=== PATIENT | female | born 1980 | race Caucasian/White ===

== ENCOUNTER → 2017-06-03 06:52 | Outpatient (CLI) | payer BC, SELFPAY ==
[2015-11-24 13:38] VITALS: BP 109/73
[2017-04-12 14:51] VITALS: BP 118/80; BMI 30.9
== END ==
PROVIDERS: Visit Provider Obstetrics & Gynecology
DX: Z12.4 Encounter for screening for malignant neoplasm of cervix (principal)

== ENCOUNTER → 2017-09-09 17:05 | Outpatient (CLI) | payer BC, SELFPAY ==
--- NOTE | 2017-09-09 15:22 | FLU_PTH ---
PATIENT: LATHA ANGELA LOC: [facility] U#:[id number] AGE/SX: 44/F ROOM: RE09/09/[address]: Dr. Magalys Nichole MD : 1980 BED: DIS: SPEC #: [id number] RECD: 09/09/17 16:58 STATUS: VINOD RELisa #: [id number] [place]: 09/09/17 15:[address]: Magalys Nichole DEPT: CYTOLOGY RECD BY: Arash Storm ENTERED: 09/10/17 13:19 SP TYPE: Fluid OTHR DR: Dr. Sterling Sandoval MD Tissues: A - Thyroid gland, NOS B - Thyroid gland, NOS Procedures: Pap Stain (control) Special Stain Group II Surgery Specimen Level IV Cell Block Cytospin Fluid Cytology Other HEADER OPERATION: Ultrasound guided fine needle aspiration of left thyroid PRE-OP DIAGNOSIS: Thyroid nodules TISSUE SUBMITTED: A. FNA left thyroid, fluid, B. FNA left thyroid, slides DIAGNOSIS CYTOLOGY A. Left thyroid nodule fluid, ultrasound-guided FNA (cytospin and cell block): Negative for malignant cells. See cytology study and comment. B. 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 See cytology study and comment. SJ:dea 09/11/17 COMMENT Immediate cytologic evaluation to determine adequacy is not applicable. Correlation with clinical, radiologic findings and appropriate follow up are necessary. CYTOLOGY STUDY Slides are reviewed. A. The specimen consists of numerous macrophages, benign follicular cells, H?rthle cells and colloid. B. The specimen is adequate for evaluation. The specimen consists of benign follicular cells, H?rthle cells, macrophages and colloid. CYTOLOGY GROSS A. Received is 35 ml of cloudy gelacio fluid labeled with the patient's name and and designated per the requisition as FNA left thyroid. Submitted for cytology preparation including cell block. B. Received are 6 smears labeled with the patient's name and designated per the requisition as FNA left thyroid. Submitted for staining. / RB:cc 5/15/18 TC:5 CPT: 66001, 30937, 26708
== END ==
PROVIDERS: Family Provider Family Medicine; PCP Family Medicine; Visit Provider Surgery
DX: E04.1 Nontoxic single thyroid nodule (principal)
CPT/HCPCS: 88108; 88161; 88305; 88313

== ENCOUNTER 2017-09-17 03:29 | Emergency (ER) | payer BC, SELFPAY ==
[2017-09-17 03:31] VITALS: BP 121/82; PULSE 96; RESP 18; TEMP 36.9; O2SAT 98; BMI 29.5
--- NOTE | 2017-09-17 03:43 | ED.VISSUMM ---
- ER Visit Summary Date of Service: 09/17/17 Chief Complaint: [] Abdominal pain History of Present Illness: The patient is a 37 F [] woke with abdominal pain 30 minutes ago. From sleep she felt periumbilical dull and sharp pains that alternate and wax and wane. Associated with some mild nausea. She felt fine prior to bed. She took 3 ibuprofen prior to coming in with minimal relief. She has never had this before. No urinary symptoms. Physical Examination: Vital signs reviewed General: Well-nourished well-developed Head: Normocephalic atraumatic Eyes: Pupils equal round and reactive to light extraocular movements intact ENT: TMs clear no hemotympanum no trauma Neck: Nontender full range of motion Cardiovascular: Regular rate rhythm no murmurs normal S1-S2 Respiratory: No distress clear to auscultation bilaterally chest nontender Abdomen: Soft and periumbilical tenderness. No tenderness over the appendix or gallbladder nondistended normal bowel sounds no masses Back: Nontender no CVA tenderness Extremities: Nontender active range of motion ?4 extremities no trauma Skin: Normal color no trauma Neuro alert oriented cranial nerves II through XII intact normal strength sensation reflexes Test Results: [] Emergency Department Course and Treatment: [] Patient did waiting for pain or nausea. Lab work obtained. white count of 11.5. This is up from 10.2. He chronically runs high and her white blood cell count. Chemistries normal. Liver function tests is normal except AST of 11. Lipase normal. Urinalysis shows nothing acute. negative. Patient did waiting for pain or nausea. Her pain has gone down. I have a low suspicion for appendicitis and reevaluation. She has some very mild tenderness periumbilical and right lower. I offered her CT abdomen pelvis to make sure she does have appendicitis which she refused. She would like to go home take pain medicine ibuprofen and see if this gets worse or goes away. This could be intestinal spasm. Could be gas pains. She will return if she worsens. Treatment Plan: [] Disposition: [] Impression: [] Abdominal pain This note was generated with [employer] dictation software. It may contain incorrect words, spelling, and punctuation that were not noted in review of the chart prior to signing ED Disposition - Plan for ED Patient: Chief Complaint: Abd Pain Referrals: Sterling Sandoval MD [Primary Care Provider] -
[2017-09-17 03:50] LABS: Absolute Lymphocyte Count 2.68 X10^3/ul (0.83-4.51); Absolute Neutrophil Count 7.6 X10^3/uL (2.0-7.7); Basophil# 0.03 X10^3/uL; Basophil% 0.3 % (0-1); Eosinophil# 0.38 X10^3/uL; Eosinophils% 3.3 % (0-5); Hematocrit 38.3 % (37-47); Hemoglobin 12.5 g/dl (12.0-15.0); Lymphocyte # 2.68 X10^3/ul (4.0); Lymphocyte % 23.3 % (19-41); Mean Corp Hgb Conc 32.6 g/gl (32-36); Mean Corpuscular Hgb 29.2 pg (27.0-32.0); Mean Corpuscular Volume 89.5 fL (81-99); Mean Platelet Vol. 9.8 fl (6.2-12.0); Monocyte# 0.78 X10^3/uL; Monocyte% 6.8 % (0-10); Neutrophil # 7.59 X10^3/uL (2.7-7.7); Neutrophil % 66.1 % (47-70); POSITIVE COUNT NO; POSITIVE DIFFERENTIAL NO; POSITIVE MORPHOLOGY NO; Platelet Count 355 K/mm3 (150-450); RBC Distribution Width CV 13.2 % (11.6-14.6); RBC Distribution Width SD 42.7 fl (35.1-43.9); Red Blood Count 4.28 M/mm3 (4.2-5.4); White Blood Count 11.5 K/mm3 (4.4-11.0)
[2017-09-17 04:20] LABS: Bacteria 0 SEEN /hpf (None Seen); Mucous, Urine 0 SEEN /hpf (<or=2+); Red Blood Cells-Urine 0 SEEN /hpf (0-5)
[2017-09-17 04:25] LABS: Color, Urine Yellow (Yellow); Glucose, Dipstick Normal (Normal); Ketone-Dipstick Negative (Negative); Leukocyte Esterase-Dipstick 100 /ul (Negative); Nitrite-Dipstick Negative (Negative); Occult Blood-Urine Negative /ul (Negative); Protein-Dipstick Negative (Negative); Specific Gravity, Urine 1.015 (1.002-1.030); Urine Bilirubin Dipstick Negative (Negative); Urine Clarity Sl. Cloudy (Clear); Urine Urobilinogen Normal (Normal)
[2017-09-17 04:33] LABS: Squamous Epithelial Cells - UA 0-5 SEEN /hpf (5-10); White Blood Cells 5-10 SEEN /hpf (0-5)
[2017-09-17 05:15] LABS: AST(SGOT) 11 U/L (15-37); Alanine Aminotransfer ALT/SGPT 15 U/L (13-56); Albumin, Serum 3.3 g/dL (3.2-5.0); Alkaline Phosphatase 65 U/L (45-117); Anion Gap 6 (5-15); BUN 7 mg/dL (7-18); Calcium,Total 8.5 mg/dL (8.5-10.1); Chloride 106 mmol/L (98-107); Creatinine, Serum 0.64 mg/dL (0.55-1.02); EST Glomerular Filtration Rate 113 mL/min (>60); Est Glom Filt Rate - Afr Amer 136 mL/min (>60); Estimated Creatinine Clearance 97.04 ml/min; Globulin 3.3 g/dL (2.2-4.2); Glucose 96 mg/dL (74-106); Lipase 155 U/L (73-393); Potassium 3.7 mmol/L (3.5-5.1); Pregnancy, Serum, hCG Quali. NEGATIVE Negative (0-9 Nonpreg); Protein, Total 6.6 g/dL (6.4-8.2); Sodium Level 142 mmol/L (136-145)
--- NOTE | 2017-09-17 05:15 | ED.RN ---
CALLED LAB TO SEE IF LABS WERE ABOUT TO RESULT. LAB STATED THEIR MACHINE BROKE AND HAS BEEN ON THE PHONE THE PAST 30MINS. THEY STATE MACHINE IS WORKING NOW. THEY WILL RESULT SOON.
--- NOTE | 2017-09-17 05:34 | ED.DEP ---
ED Disposition - Plan for ED Patient: Disposition: Home or Assisted Living Chief Complaint: Abd Pain Instructions: ED Abdominal Pain Unkn Cause Referrals: Sterling Sandoval MD [Primary Care Provider] -
[2017-09-17 05:39] VITALS: PULSE 72; RESP 16; O2SAT 97
--- NOTE | 2017-09-17 05:40 | ED.RN ---
DISCHARGED INSTRUCTS DISCUSSED WITH PT. PT STATED I COULD THROW THEM IN THE TRASH.
== END 2017-09-17 05:42 | disposition home or self-care (01) ==
PROVIDERS: Emergency Provider Emergency Medicine; Family Provider Family Medicine; PCP Family Medicine
DX: R10.9 Unspecified abdominal pain (principal); R11.0 Nausea
CPT/HCPCS: 80048; 80076; 81001; 83690; 84703; 85025; 99283; A4216

== ENCOUNTER 2017-09-17 11:36 | Emergency (ER) | payer BC, SELFPAY ==
[2017-09-17 11:38] VITALS: BP 119/83; PULSE 98; RESP 18; TEMP 36.7; O2SAT 100; BMI 30.1
--- NOTE | 2017-09-17 12:42 | CT_ITS ---
STUDY: CT ABDOMEN AND PELVIS WITH CONTRAST REASON FOR EXAM: Female, 37 years old. Right lower quadrant abdominal pain. RADIATION DOSAGE (If Supplied By Facility): CTDIvol = ( 8.72 ) mGy, DLP = ( 940.40 ) mGycm TECHNIQUE: Transaxial images were obtained from the dome of the diaphragm to the symphysis pubis without oral contrast. 100 ml of Isovue 300 contrast was administered. Sagittal and coronal images were reconstructed. Individualized dose optimization techniques were used for this CT. COMPARISON: None. FINDINGS: Bilateral breast implants. The visualized lung bases are unremarkable. The visualized portions of the heart are within normal limits. Mild hepatomegaly. Normal gallbladder and extrahepatic biliary system. Normal spleen. Normal pancreas. There is a small, circumscribed, smooth, low attenuation left adrenal mass, consistent with an adrenal adenoma. This measures 2.5 cm x 2.1 cm. Normal right adrenal gland. Normal right kidney. Normal left kidney. Normal visualized stomach. Normal small intestine. Normal colon. There is non-visualization of the appendix. Normal abdominal aorta. Normal inferior vena cava. Normal retroperitoneum. Normal urinary bladder. There is a small umbilical hernia containing fat. Normal osseous structures. CT/Abdomen/Pelvis W IV Cont ONLY IMPRESSION: Hepatomegaly. 2.5 cm x 2.1 cm low density nodule in the left adrenal gland suggestive of a adrenal adenoma. Electronically Signed: Bruce Hudson MD at 14:38 EDT Tel [phone], Service support ,
[2017-09-17] MEDS: 0.9% Normal Saline 1,000 ML 1000 ML IV (13:00)
[2017-09-17 13:09] LABS: Absolute Lymphocyte Count 1.77 X10^3/ul (0.83-4.51); Absolute Neutrophil Count 9.6 X10^3/uL (2.0-7.7); Basophil# 0.02 X10^3/uL; Basophil% 0.2 % (0-1); Eosinophils% 0.8 % (0-5); Hematocrit 36.4 % (37-47); Hemoglobin 11.7 g/dl (12.0-15.0); Lymphocyte # 1.77 X10^3/ul (4.0); Lymphocyte % 14.3 % (19-41); Mean Corp Hgb Conc 32.1 g/gl (32-36); Mean Corpuscular Hgb 28.6 pg (27.0-32.0); Mean Platelet Vol. 9.9 fl (6.2-12.0); Monocyte# 0.84 X10^3/uL; Monocyte% 6.8 % (0-10); Neutrophil # 9.61 X10^3/uL (2.7-7.7); Neutrophil % 77.7 % (47-70); Platelet Count 325 K/mm3 (150-450); RBC Distribution Width CV 13.2 % (11.6-14.6); RBC Distribution Width SD 42.3 fl (35.1-43.9); Red Blood Count 4.09 M/mm3 (4.2-5.4); White Blood Count 12.4 K/mm3 (4.4-11.0)
[2017-09-17 13:13] LABS: POSITIVE COUNT NO; POSITIVE DIFFERENTIAL NO; POSITIVE MORPHOLOGY NO
--- NOTE | 2017-09-17 14:51 | ED.DCSUM_ITS ---
- ER Visit Summary Date of Service: 09/17/17 Chief Complaint: Abdominal pain History of Present Illness: The patient is a 37 F who presents with abdominal pain since 3:30 in the morning. Patient was seen shortly after the pain woke her up had a white count just above 11. She was discharged home and returns today with continued pain. Patient states the pain is constant and aching. She notes nausea but no vomiting. She had a negative urinalysis this morning. No fevers. Physical Examination: Afebrile vital signs are stable Gen: Well-nourished well-developed Head: Normocephalic atraumatic Eyes: Perrl EOMI ENT: TMs clear no rhinorrhea moist mucous membranes Neck: Supple no lymphadenopathy no JVD nontender CVS: Regular rate rhythm no murmurs normal S1-S2 Respiratory: No distress clear to auscultation bilaterally chest nontender Abdomen: Soft nondistended normal bowel sounds no masses there is tenderness to palpation in the right lower quadrant without guarding or rebound Back: Nontender Extremity: Nontender no edema Skin: Normal color no rash Neuro: alert orientated ?3 CN II-XII intact normal strength sensation reflexes gait cerebellar Psych: Normal affect normal mood Test Results: White count was repeated and is 12.4. CT the abdomen pelvis was obtained which does not demonstrate any acute process. There is nonvisualization of the appendix but there is no inflammatory changes in the right lower quadrant to suggest acute appendicitis. Emergency Department Course and Treatment: Patient is tender but has no guarding or rebound. I think a prudent course given her white count lack of fever and her CT findings is continued observation. I have asked that she have a repeat examination within 24 hours if she continues to have symptoms. Impression: 1. Acute abdominal pain This note was generated with [employer] dictation software. It may contain incorrect words, spelling, and punctuation that were not noted in review of the chart prior to signing ED Disposition - Plan for ED Patient: Disposition: Home or Assisted Living Chief Complaint: Abd Pain Instructions: ED Abdominal Pain Unkn Cause Additional Instructions: If you are continuing to have symptoms in 24 hours you need a repeat examination by either your family physician or the emergency department.
[2017-09-17 15:13] VITALS: BP 104/64; PULSE 78; RESP 16; O2SAT 98
== END 2017-09-17 15:15 | disposition home or self-care (01) ==
PROVIDERS: Emergency Provider Emergency Medicine; Family Provider Family Medicine; PCP Family Medicine
DX: R10.9 Unspecified abdominal pain (principal); R11.0 Nausea
CPT/HCPCS: 74177; 85025; 96361; 96374; 96375; 99284; Q9967; A4216; J2405

== ENCOUNTER → 2017-10-25 15:07 | Outpatient (CLI) | payer BC, SELFPAY ==
[2017-10-25 16:43] LABS: Absolute Neutrophil Count 5.1 X10^3/uL (2.0-7.7); Basophil# 0.04 X10^3/uL; Basophil% 0.5 % (0-1); Eosinophils% 4.5 % (0-5); Hematocrit 39.5 % (37-47); Hemoglobin 12.3 g/dl (12.0-15.0); Lymphocyte % 28.3 % (19-41); Mean Corp Hgb Conc 31.1 g/gl (32-36); Mean Platelet Vol. 9.9 fl (6.2-12.0); Monocyte# 0.79 X10^3/uL; Monocyte% 8.9 % (0-10); Neutrophil # 5.09 X10^3/uL (2.7-7.7); Neutrophil % 57.7 % (47-70); Platelet Count 399 K/mm3 (150-450); RBC Distribution Width CV 12.9 % (11.6-14.6); Red Blood Count 4.39 M/mm3 (4.2-5.4); White Blood Count 8.8 K/mm3 (4.4-11.0)
[2017-10-25 16:59] LABS: Thyroid Stim Hormone (TSH) 0.56 uIU/mL (0.358-3.74)
[2017-10-25 17:04] LABS: POSITIVE COUNT NO; POSITIVE DIFFERENTIAL NO; POSITIVE MORPHOLOGY NO
== END ==
PROVIDERS: Family Provider Family Medicine; PCP Family Medicine; Visit Provider Nurse Practitioner Women's Health
DX: N92.1 Excessive and frequent menstruation with irregular cycle (principal)
CPT/HCPCS: 36415; 84443; 85025

== ENCOUNTER → 2017-10-29 12:35 | Outpatient (CLI) | payer BC, SELFPAY ==
--- NOTE | 2017-10-29 12:36 | US_ITS ---
STUDY: ULTRASOUND OF THE FEMALE PELVIS - COMPLETE REASON FOR EXAM: Female, 37 years old. DUB MENORRHAGIA PELVIC PAIN C SECTION 16,13 TUBAL LIGATION AND REVERSAL TECHNIQUE: Transvaginal COMPARISON: None. FINDINGS: The uterus is anteverted and is in a midline position. The uterus measures 10 x 6.2 x 4.1 cm. There is a Nabothian cyst of the cervix. The endometrium measures 9 mm in thickness, and is hyperechoic. There is no demonstrated endometrial mass. There is no demonstrated myometrial mass. I.U.D. - The patient does not have an I.U.D. The right ovary is visualized. The right ovary measures 2.4 x 2.9 x 2.9 cm. There is no right ovarian cyst or ovarian mass. There is no visualized right adnexal mass or complex lesion. There is normal arterial and normal venous vascularity. The left ovary is visualized. The left ovary measures 4.2 x 3.1 x 2.6 cm. There is no left ovarian cyst or ovarian mass. There is no visualized left adnexal mass or complex lesion. There is normal arterial and normal venous vascularity. There is no fluid in the cul-de-sac. The pre void volume of the bladder was 482 ml. US/Transvaginal Non- IMPRESSION: There are Nabothian cysts of the cervix. Electronically Signed: Ajith Thornton MD at 19:40 EDT , Service support ,
--- NOTE | 2017-10-29 12:36 | US_ITS ---
STUDY: ULTRASOUND OF THE FEMALE PELVIS - COMPLETE REASON FOR EXAM: Female, 37 years old. DUB MENORRHAGIA PELVIC PAIN C SECTION 16,13 TUBAL LIGATION AND REVERSAL TECHNIQUE: Transvaginal COMPARISON: None. FINDINGS: The uterus is anteverted and is in a midline position. The uterus measures 10 x 6.2 x 4.1 cm. There is a Nabothian cyst of the cervix. The endometrium measures 9 mm in thickness, and is hyperechoic. There is no demonstrated endometrial mass. There is no demonstrated myometrial mass. I.U.D. - The patient does not have an I.U.D. The right ovary is visualized. The right ovary measures 2.4 x 2.9 x 2.9 cm. There is no right ovarian cyst or ovarian mass. There is no visualized right adnexal mass or complex lesion. There is normal arterial and normal venous vascularity. The left ovary is visualized. The left ovary measures 4.2 x 3.1 x 2.6 cm. There is no left ovarian cyst or ovarian mass. There is no visualized left adnexal mass or complex lesion. There is normal arterial and normal venous vascularity. There is no fluid in the cul-de-sac. The pre void volume of the bladder was 482 ml. US/Pelvic (Non ) IMPRESSION: There are Nabothian cysts of the cervix. Electronically Signed: Ajith Thornton MD at 19:40 EDT , Service support ,
== END ==
PROVIDERS: Family Provider Family Medicine; PCP Family Medicine; Visit Provider Obstetrics & Gynecology
DX: N92.1 Excessive and frequent menstruation with irregular cycle (principal); R10.2 Pelvic and perineal pain
CPT/HCPCS: 76830; 76856; 93976

== ENCOUNTER 2018-02-21 06:35 | Day surgery (SDC) | payer BC, SELFPAY ==
--- NOTE | 2018-02-21 | EMB_PTH ---
PATIENT: LATHA ANGELA LOC: [facility] [place] U#:[id number] AGE/SX: 37/F ROOM: RE02/21/[address]: Dr. Ada Murphy MD : 1980 BED: DIS: 02/21/2018 SPEC #: [id number] RECD: 02/21/18 12:10 STATUS: VINOD RELisa #: [id number] [place]: 02/21/18 00:[address]: Ada Murphy DEPT: SURGICAL PATHOLOGY RECD BY: Cornelio Noe ENTERED: 02/21/18 12:10 SP TYPE: ENDOM BX/C ELFEGO DR: Dr. Roberto Pérez MD Tissues: Endometrium, NOS Procedures: Surgery Specimen Level IV HEADER OPERATION: Hysteroscopy, dilation and curettage, Marley PRE-OP DIAGNOSIS: Abnormal uterine bleeding TISSUE SUBMITTED: Endometrial curettings MICROSCOPIC DIAGNOSIS Endometrial curettings: Weakly proliferative to inactive endometrium. SJ:dae 02/24/18 MICROSCOPIC DESCRIPTION Slides are reviewed. GROSS DESCRIPTION Received in fixative is one container labeled with the patient's name and designated endometrial curettings. The specimen consists of multiple fragments of hemorrhagic soft tissue that in aggregate measure 3 x 2.5 x 0.3 cm. The entire specimen is submitted in one cassette. / MAN:dae 02/21/18 TC:5 CPT: 46669
[2018-02-21 07:10] VITALS: BP 108/75; PULSE 86; RESP 14; TEMP 37.3; O2SAT 75; BMI 30.2
[2018-02-21 07:14] LABS: Hematocrit 37.9 % (37-47); Hemoglobin 12.1 g/dl (12.0-15.0); Mean Corp Hgb Conc 31.9 g/gl (32-36); Mean Corpuscular Hgb 28.1 pg (27.0-32.0); Mean Corpuscular Volume 88.1 fL (81-99); Mean Platelet Vol. 10.3 fl (6.2-12.0); Platelet Count 328 K/mm3 (150-450); RBC Distribution Width CV 13.4 % (11.6-14.6); RBC Distribution Width SD 41.9 fl (35.1-43.9); White Blood Count 5.7 K/mm3 (4.4-11.0)
[2018-02-21 07:17] LABS: Scan Indicated on CBC? Y/N NO
--- NOTE | 2018-02-21 09:06 | PCM.OPRPT ---
Problem List (1) Abnormal uterine bleeding Status: Acute Report of Operation Date of Procedure: 02/21/18 Pre-Operative Diagnosis: abNormal uterine bleeding Post-Operative Diagnosis: Same Surgery/Procedure Performed:: D&C hysteroscopy Marley endometrial ablation Description of Surgical Findings:: Normal uterine lining Type of Anesthesia:: Local MAC Specimen's removed: EM Drains: None Estimated Blood Loss (mL): Minimal Fluids Replaced: cryStyloid Description of Procedure: Patient was prepped and draped in a normal sterile fashion under MAC anesthesia. A weighted speculum was placed in the vagina and the anterior lip of the cervix was grasped with a single-tooth tenaculum. A paracervical block was placed with 1% lidocaine. Cervix was progressively dilated to allow passage of a 5 mm hysteroscope. The lining was fully visualized and noted to have no gross abnormalities. Uterine sounded to 9.5 cm. Curettage was performed and a moderate amount of tissue was obtained, sent to pathology. The Marley device was opened and the cavity length was found to be 6.5 cm. Device was inserted into the uterus and balloon inflated and device deployed. Integrity of the cavity was confirmed and a 2 minute treatment cycle was completed without complication. All instruments were removed from the vagina and excellent hemostasis was noted. Patient was awoken and taken to recovery in stable condition.
--- NOTE | 2018-02-21 09:07 | DCINST_ITS ---
Discharge Diet: No Restrictions Discharge Activity: Return to Normal Activity, May Shower, May Take a Tub Bath Allergies/Adverse Reactions: Allergies sucralfate [From Carafate] Allergy (Verified 02/21/18 07:10) Hives acetaminophen [From Tylenol] Adverse Reaction (Verified 02/21/18 07:10) Nausea egg Adverse Reaction (Verified 02/21/18 07:10) Abd cramps/diarrhea Medications to take at Discharge alprazolam 0.25 mg tablet 0.25 mg PO BID PRN PRN 06/03/17 ranitidine 150 mg tablet 150 mg PO QDAY 10/25/17 Norethindrone Acetate [Norethindrone AC (Lupaneta)] 5 mg PO BID 02/14/18 Naproxen [Naprosyn] 250 - 500 mg PO Q8H PRN PRN #30 tablet 02/21/18 The following prescriptions were given: Naproxen [Naprosyn] 250 - 500 mg PO Q8H PRN PRN #30 tablet PRN Reason: MILD PAIN Primary Care Physician: Roberto Pérez MD [Primary Care Provider] - Test Results: Test results from this visit will be discussed in further detail at your follow- up appointment, if applicable. Please Follow Up With: Ada Murphy MD - [phone]
[2018-02-21 09:19] VITALS: BP 108/75; BP 145/101; PULSE 96; RESP 16; TEMP 36.2; O2SAT 98
[2018-02-21 09:24] VITALS: BP 108/75; BP 124/92; PULSE 91; RESP 16; O2SAT 99
[2018-02-21 09:31] VITALS: BP 108/75; BP 127/92; PULSE 78; RESP 16; O2SAT 99
[2018-02-21 09:36] VITALS: BP 108/75; BP 127/91; PULSE 77; RESP 16; TEMP 36.4; O2SAT 99
[2018-02-21] MEDS: oxyCODONE 5 MG Tablet PO (10:10)
[2018-02-21 11:49] VITALS: BP 108/75; BP 135/98; PULSE 77; RESP 18; TEMP 36.7; O2SAT 96
== END 2018-02-21 11:57 | disposition home or self-care (01) ==
LOC: SDC 06:36 → AC 06:38
PROVIDERS: Family Provider Family Medicine; PCP Family Medicine; Referring Provider Obstetrics & Gynecology; Visit Provider Obstetrics & Gynecology
PROC: 0U5B8ZZ Destruction of Endometrium, Via Natural or Artificial Opening Endoscopic (ICD-10-PCS; CPT 58558; principal; 2018-02-21 08:00)
DX: N93.9 Abnormal uterine and vaginal bleeding, unspecified (principal)
CPT/HCPCS: 00952; 58563; 36415; 85027; 86850; 86900; 88305; J7120; J2405

== ENCOUNTER 2018-06-22 10:29 | Emergency (ER) | payer BC, SELFPAY ==
[2018-06-22 10:30] VITALS: BP 147/90; PULSE 110; RESP 16; TEMP 36.7; O2SAT 100; BMI 31.4
--- NOTE | 2018-06-22 10:41 | CT_ITS ---
STUDY: CT ABDOMEN AND PELVIS WITH CONTRAST REASON FOR EXAM: Female, 38 years old. Right flank pain and abdominal pain with dark urine. Cholecystectomy 6 weeks ago RADIATION DOSAGE (If Supplied By Facility): CTDIvol = ( 13.71 ) mGy, DLP = ( 899.45 ) mGycm TECHNIQUE: Transaxial images were obtained from the dome of the diaphragm to the symphysis pubis without oral contrast. 100mL ml of Isovue 300 contrast was administered. Sagittal and coronal images were reconstructed. Individualized dose optimization techniques were used for this CT. COMPARISON: None. FINDINGS: The visualized lung bases are unremarkable. The visualized portions of the heart are within normal limits. Normal liver. There are surgical clips in the gallbladder fossa consistent with a prior cholecystectomy. No focal fluid collection. Normal spleen. Normal pancreas. Normal bilateral adrenal glands. Normal right kidney. Normal left kidney. Normal visualized stomach. Normal small intestine. Normal colon. There is non-visualization of the appendix. Normal abdominal aorta. Normal inferior vena cava. Normal retroperitoneum. Normal urinary bladder. There is increased lobulated endometrial fluid with endometrial enhancement, as compared to the prior study (axial image 99). Bilateral breast implants redemonstrated. Operative changes of the anterior abdominal wall without [place] abdominal wall hernia. Normal osseous structures. CT/Abdomen/Pelvis W IV Cont ONLY IMPRESSION: 1. Lobular fluid within the endometrial canal with endometrial mucosal enhancement. Infection such as endometritis or adenomyosis should be considered. Correlation with any intervening pathological procedure recommended. 2. Cholecystectomy. No focal fluid collection or pneumoperitoneum. Electronically Signed: Ganga Gutierrez MD at 12:07 EST , Service support ,
--- NOTE | 2018-06-22 10:44 | ED.VISSUMM ---
- ER Visit Summary Date of Service: 06/22/18 Chief Complaint: Right lower quadrant abdominal pain History of Present Illness: The patient is a 38 F status post cholecystectomy. States that last evening and this morning she had right lower quadrant abdominal pain. It waxes and wanes. Been going on today now for 1-2 hours. Associated nausea but no vomiting. No diet chorea or constipation. No dysuria. No vaginal bleeding or discharge. She had a uterine ablation done last January and no longer has menstrual periods. She denies any fever or chills. She denies any trauma. Physical Examination: Well-appearing young female. Vital signs are stable. Afebrile. No distress. HEENT exam unremarkable. Lungs clear to auscultation bilaterally. Heart regular rhythm no murmur. Abdomen soft. Nondistended. Normal bowel sounds. The right upper, left upper and left lower quadrants are all nontender. She does have tenderness to deep palpation in the right lower quadrant. There are no peritoneal signs. No guarding or rigidity. Nondistended. She does have a surgical incisional scar on the right mid to lower abdomen from her prior cholecystectomy. That area is not tender. There are no signs of trauma. She has normal bowel sounds. Patient is moving all 4 extremities. Neurovascular intact. No edema. Back is completely nontender no CVA tenderness. Neurologically she is awake and alert. Test Results: 11. Electrolytes normal normal gap and creatinine. UA normal no signs of infection or blood. Serum test negative. CT flank study with IV contrast showed fluid in the endometrial canal but no other acute abnormality. The appendix was not visualized. There is no signs of right lower quadrant inflammation. Emergency Department Course and Treatment: Patient treated with IV Toradol for pain and Zofran for nausea. Repeat exam at 12:12 PM patient is doing well. Abdomen is benign. Right lower quadrant unremarkable. She and I and her significant other went over all test results. They are comfortable being discharged home. Treatment Plan: Motrin for pain. Zofran as needed for nausea. Follow-up if not improving or return if worse. Disposition: Discharge Impression: Acute right lower quadrant abdominal pain of uncertain etiology This note was generated with [employer] software. It may contain incorrect words, spelling, and punctuation that were not noted in review of the chart prior to signing ED Disposition - Plan for ED Patient: Referrals: Roberto Pérez MD [Primary Care Provider] -
[2018-06-22] MEDS: Ondansetron 4 MG/2 ML Vial IV (10:56)
[2018-06-22] MEDS: Ketorolac 30 MG/ML Syringe IV (10:56)
[2018-06-22 11:03] LABS: Bacteria 0 SEEN /hpf (None Seen); Mucous, Urine 0 SEEN /hpf (<or=2+); Red Blood Cells-Urine 0 SEEN /hpf (0-5); White Blood Cells 0 SEEN /hpf (0-5)
[2018-06-22 11:10] LABS: Absolute Lymphocyte Count 1.64 X10^3/ul (0.83-4.51); Absolute Neutrophil Count 7.1 X10^3/uL (2.0-7.7); Basophil# 0.05 X10^3/uL; Basophil% 0.5 % (0-1); Color, Urine Yellow (Yellow); Eosinophil# 0.22 X10^3/uL; Eosinophils% 2.2 % (0-5); Glucose, Dipstick Normal (Normal); Hematocrit 40.6 % (37-47); Hemoglobin 12.9 g/dl (12.0-15.0); Ketone-Dipstick Negative (Negative); Leukocyte Esterase-Dipstick 25 /ul (Negative); Lymphocyte # 1.64 X10^3/ul (4.0); Lymphocyte % 16.5 % (19-41); Mean Corp Hgb Conc 31.8 g/gl (32-36); Mean Corpuscular Hgb 28.1 pg (27.0-32.0); Mean Corpuscular Volume 88.5 fL (81-99); Mean Platelet Vol. 10.2 fl (6.2-12.0); Monocyte# 0.94 X10^3/uL; Monocyte% 9.4 % (0-10); Neutrophil # 7.09 X10^3/uL (2.7-7.7); Neutrophil % 71.2 % (47-70); Nitrite-Dipstick Negative (Negative); Occult Blood-Urine Negative /ul (Negative); Platelet Count 355 K/mm3 (150-450); Protein-Dipstick Negative (Negative); RBC Distribution Width SD 44.1 fl (35.1-43.9); Red Blood Count 4.59 M/mm3 (4.2-5.4); Urine Bilirubin Dipstick Negative (Negative); Urine Clarity Clear (Clear); Urine Urobilinogen Normal (Normal)
[2018-06-22 11:11] LABS: POSITIVE COUNT NO; POSITIVE DIFFERENTIAL NO; POSITIVE MORPHOLOGY NO
[2018-06-22 11:15] LABS: Squamous Epithelial Cells - UA 0-5 SEEN /hpf (5-10)
[2018-06-22 11:32] LABS: Anion Gap 5 (5-15); BUN 12 mg/dL (7-18); BUN/Creat Ratio 19.6 RATIO (10-20); Calcium,Total 8.4 mg/dL (8.5-10.1); Chloride 109 mmol/L (98-107); Creatinine, Serum 0.61 mg/dL (0.55-1.02); EST Glomerular Filtration Rate 118 mL/min (>60); Est Glom Filt Rate - Afr Amer 142 mL/min (>60); Estimated Creatinine Clearance 100.84 ml/min; Glucose 94 mg/dL (74-106); Potassium 4.1 mmol/L (3.5-5.1); Pregnancy, Serum, hCG Quali. NEGATIVE Negative (0-9 Nonpreg); Sodium Level 140 mmol/L (136-145)
--- NOTE | 2018-06-22 12:24 | ED.DEP ---
ED Disposition - Plan for ED Patient: Disposition: Home or Assisted Living Instructions: ED Flank Pain Uncertain Cause Referrals: Roberto Pérez MD [Primary Care Provider] - 3-5 Days if not improving Additional Instructions: Motrin for pain. All your tests were unremarkable today. Follow-up your primary care physician if not improving.
[2018-06-22 12:33] VITALS: BP 121/76; PULSE 888; RESP 16; O2SAT 100
== END 2018-06-22 12:34 | disposition home or self-care (01) ==
PROVIDERS: Emergency Provider Emergency Medicine; Family Provider Family Medicine; PCP Family Medicine
DX: R10.31 Right lower quadrant pain (principal); R11.0 Nausea; K21.9 Gastro-esophageal reflux disease without esophagitis; Z90.49 Acquired absence of other specified parts of digestive tract
CPT/HCPCS: 74177; 80048; 81001; 84703; 85025; 96374; 96375; 99283; Q9967; A4216; J2405

== ENCOUNTER → 2018-07-07 13:23 | Outpatient (CLI) | payer BC, SELFPAY ==
[2018-07-07 11:34] VITALS: BMI 31.4
[2018-07-11 09:12] LABS: HPV APTIMA, High Risk Negative (Negative)
== END ==
PROVIDERS: Family Provider Family Medicine; PCP Family Medicine; Referring Provider Obstetrics & Gynecology; Visit Provider Obstetrics & Gynecology
DX: Z12.4 Encounter for screening for malignant neoplasm of cervix (principal)
CPT/HCPCS: 87624; 88175; G0145

== ENCOUNTER 2018-08-25 08:56 | Emergency (ER) | payer BC, SELFPAY ==
[2018-07-07 11:34] VITALS: BMI 31.4
[2018-08-25 08:56] VITALS: BP 105/83; PULSE 118; RESP 18; TEMP 36.6; O2SAT 100; BMI 31.4
--- NOTE | 2018-08-25 09:14 | CT_ITS ---
STUDY: CT ABDOMEN AND PELVIS WITH CONTRAST REASON FOR EXAM: Female, 38 years old. Left-sided abdominal pain, prior cholecystectomy and tubal ligation. RADIATION DOSAGE (If Supplied By Facility): CTDIvol = ( 11.78 ) mGy, DLP = ( 851.09 ) mGycm TECHNIQUE: Transaxial images were obtained from the dome of the diaphragm to the symphysis pubis with oral contrast. 100mL ml of Isovue 300 contrast was administered. Sagittal and coronal images were reconstructed. Individualized dose optimization techniques were used for this CT. COMPARISON: PELVIC AND TRANSVAGINAL 08/25/2017, CT ABDOMEN AND PELVIS 06/22/2018, 09/17/2017, ULTRASOUND TRANSVAGINAL 10/29/2017. FINDINGS: Body wall soft tissues: No acute process. Osseous structures: No acute process. Inferior chest: No acute process. Hepatobiliary: Hepatomegaly, craniocaudal right liver 22 cm, with evidence of at least mild hepatic steatosis. Cholecystectomy. Very slight intrahepatic biliary ductal ectasia, and very minimal ectasia of the common bile duct and hepatic duct, stable compared to prior imaging of 2017. Pancreas: No acute process. Spleen: Normal. Adrenal glands: Left adrenal nodule 2.9 cm craniocaudal, 2.1 cm transverse, 2.6 cm anterior-posterior. Unchanged compared to prior imaging of 09/17/2017. Incompletely characterized on contrast-enhanced imaging relative to nonenhanced density characteristics but the entirety of the nodule exhibits relatively low density features favoring benign lipid rich adrenal adenoma. The right adrenal gland is normal. Urogenital: Normal bilateral renal parenchyma. Symmetric nephrograms. Nondilated collecting systems. There is mild ectasia of both the right and the left ureter. Possibly due to mild compression in the right and left adnexa. There is no ureteral calculus. Unremarkable urinary bladder. Arcuate or partial septate morphology of the endometrium. Persistent endometrial thickening, right cornua up to 2 cm, left cornua up to 2.1 cm. Lobulated features of the left cornual. Enhancing septations. Subjacent to the margin of the endometrium multifocal, multiple small low-density crypt-like foci. Similar features seen on prior imaging of 06/22/2018. No visible fibroids. Normal follicular features of each ovary without enlarged cyst. Small amount of fluid in the right adnexa and cul-de-sac. Pelvic floor and sidewalls and retroperitoneum: No mass or adenopathy. Vasculature: No acute process. Stomach: No acute process. Small bowel and mesentery: No acute process. Large bowel: Normal appendix. Unremarkable large bowel and rectum. Free fluid or free air: As noted above, minimal free fluid in the deep pelvis. No free air. CT/Abdomen/Pelvis WITH Contrast IMPRESSION: Abnormal uterus. Abnormal thickening and abnormal contour of the endometrial cavity. Differential considerations might include endometriosis, adenomyosis, pelvic inflammatory disease, endometrial malignancy. Gynecologic consultation recommended. No other acute abdominopelvic process is evident. Electronically Signed: Carlitos Keane MD at 11:34 EDT Tel , Service support ,
--- NOTE | 2018-08-25 09:15 | US_ITS ---
STUDY: ULTRASOUND TRANSVAGINAL CLINICAL: Female, 38 years old. Left lower quadrant pain, 3 months. Partial hysterectomy scheduled 4 09/22/2018 due to fluid in the endometrium. TECHNIQUE: Transvaginal and transabdominal (Transvaginal imaging performed for enhanced visualization of uterus and endometrium, and posterior adnexal structures). COMPARISON: None. FINDINGS: Uterus is anteverted, 9.9 x 6.8 x 6.6 cm. No visible fibroids. Normal myometrial echotexture. Endometrium is hypoechoic, thickened, with irregular borders. Greatest measured thickness of the fundal endometrium is 17 mm. Greater thickness of the left cornua, about 20 mm. The hypoechoic endometrial tissue does not exhibit significant posterior acoustic enhancement, compatible with fluid. Mildly lobulated contour of the endometrium, hypoechoic crypt-like spaces. Concordant with those described on CT scan. Minimal cul-de-sac free fluid and minimal free fluid identified adjacent to the left ovary. There is no right or left adnexal mass or suspicious cyst. Multi-follicular features of each ovary, exhibiting peripheral small follicles in a string of pearls pattern which may be a manifestation of polycystic ovary syndrome. The right ovary measures 3 x 25 x 20 mm and the left ovary 31 x 26 x 20 mm. US/Transvaginal Non- IMPRESSION: Thickened hypoechoic endometrial with irregular borders. Additional description and differential considerations discussed with the CT abdomen and pelvis report, performed today. Multi-follicular features of each ovary may represent a manifestation of polycystic ovary syndrome. Electronically Signed: Carlitos Keane MD at 11:45 EDT Tel , Service support ,
--- NOTE | 2018-08-25 09:18 | ED.DCSUM_ITS ---
- ER Visit Summary Date of Service: 08/25/18 Chief Complaint: Abdominal pain History of Present Illness: The patient is a 38 F presenting with left lower quadrant abdominal pain. This has been ongoing but worsened since Saturday. She has seen Dr. Gambino and is scheduled for partial hysterectomy on September 22. She was taking ibuprofen at home. Over the weekend her doctor called in oxycodone and a muscle relaxer. She states this helps her sleep but the pain continues. She has nausea with no vomiting. She has constipation. She denies urinary complaints. Denies fever. Denies other complaints. Physical Examination: Vitals are stable. Patient is afebrile. Alert no acute distress. HEENT exam is unremarkable. Neck is supple. Lungs are clear and equal bilaterally. Heart is regular rate and rhythm. Abdomen is soft left lower quadrant tenderness with no rebound or guarding Pelvic: No cervical motion tenderness, no discharge, no adnexal tenderness Extremities are unremarkable. Skin is warm and dry. Remainder of exam is unremarkable. Emergency Department Course and Treatment: Patient was given IV fluids, morphine, Zofran IV. CBC, chemistries unremarkable. Urinalysis shows 0-5 white blood cells. hCG negative. CT abdomen pelvis shows abnormal uterus. Abnormal thickening and abnormal contour of the endometrial cavity. Differential considerations might include endometriosis, adenomyosis, pelvic inflammatory disease, endometrial malignancy. Gynecologic consultation recommended. No other acute abdominopelvic process is evident. Pelvic ultrasound shows Thickened hypoechoic endometrial with irregular borders. Multi-follicular features of each ovary may represent a manifestation of polycystic ovary syndrome. On reevaluation, patient is resting comfortably. Dr. Gambino is currently out of town. Discussed with Dr. Devlin. She recommends trying Naprosyn instead of ibuprofen. Patient is given a prescription for oxycodone as well, she will take Naprosyn [id number]. She will follow-up with Dr. Gambino when she returns. Advised to return to ED if worsening complaints. Disposition: Discharge home Impression: Pelvic pain This note was generated with [employer] dictation software. It may contain incorrect words, spelling, and punctuation that were not noted in review of the chart prior to signing ED Disposition - Plan for ED Patient: Referrals: Roberto Pérez MD [Primary Care Provider] -
[2018-08-25] MEDS: Morphine 4 MG/ML Syringe IV (09:35)
[2018-08-25] MEDS: 0.9% Normal Saline 1,000 ML 1000 ML IV (09:35)
[2018-08-25] MEDS: Ondansetron 4 MG/2 ML Vial IV (09:35)
[2018-08-25 09:39] LABS: Absolute Lymphocyte Count 1.47 X10^3/ul (0.83-4.51); Basophil# 0.03 X10^3/uL; Basophil% 0.3 % (0-1); Eosinophil# 0.41 X10^3/uL; Eosinophils% 4.2 % (0-5); Hematocrit 38.8 % (37-47); Hemoglobin 12.5 g/dl (12.0-15.0); Lymphocyte # 1.47 X10^3/ul (4.0); Lymphocyte % 14.9 % (19-41); Mean Corp Hgb Conc 32.2 g/gl (32-36); Mean Corpuscular Hgb 28.2 pg (27.0-32.0); Mean Corpuscular Volume 87.4 fL (81-99); Mean Platelet Vol. 9.8 fl (6.2-12.0); Monocyte# 0.93 X10^3/uL; Monocyte% 9.4 % (0-10); Neutrophil # 6.99 X10^3/uL (2.7-7.7); Platelet Count 281 K/mm3 (150-450); RBC Distribution Width CV 13.5 % (11.6-14.6); RBC Distribution Width SD 43.7 fl (35.1-43.9); Red Blood Count 4.44 M/mm3 (4.2-5.4); White Blood Count 9.9 K/mm3 (4.4-11.0)
[2018-08-25 09:41] LABS: POSITIVE COUNT NO; POSITIVE DIFFERENTIAL NO; POSITIVE MORPHOLOGY NO
[2018-08-25 09:43] LABS: Color, Urine Yellow (Yellow); Glucose, Dipstick Normal (Normal); Ketone-Dipstick Negative (Negative); Leukocyte Esterase-Dipstick 25 /ul (Negative); Mucous, Urine 0 SEEN /hpf (<or=2+); Nitrite-Dipstick Negative (Negative); Occult Blood-Urine Negative /ul (Negative); Protein-Dipstick Negative (Negative); Red Blood Cells-Urine 0 SEEN /hpf (0-5); Urine Bilirubin Dipstick Negative (Negative); Urine Clarity Clear (Clear); Urine Urobilinogen Normal (Normal)
[2018-08-25 09:49] LABS: Bacteria RARE /hpf (None Seen); Squamous Epithelial Cells - UA 5-10 SEEN /hpf (5-10); White Blood Cells 0-5 SEEN /hpf (0-5)
[2018-08-25 09:49] LABS: Internal QC Validated? YES +Cl - CLEAR BKGD
[2018-08-25 09:50] LABS: Pregnancy, Serum, hCG Quali. NEGATIVE Negative
[2018-08-25 09:52] LABS: Anion Gap 5 (5-15); BUN 13 mg/dL (7-18); BUN/Creat Ratio 19.8 RATIO (10-20); Calcium,Total 8.1 mg/dL (8.5-10.1); Chloride 106 mmol/L (98-107); Creatinine, Serum 0.66 mg/dL (0.55-1.02); EST Glomerular Filtration Rate 108 mL/min (>60); Est Glom Filt Rate - Afr Amer 131 mL/min (>60); Glucose 83 mg/dL (74-106); Potassium 3.8 mmol/L (3.5-5.1); Sodium Level 140 mmol/L (136-145)
[2018-08-25 11:16] VITALS: RESP 18
--- NOTE | 2018-08-25 12:34 | PCA ---
PAGED DR GREGORIO FOR DR ARELLANO @1230
--- NOTE | 2018-08-25 13:39 | ED.DEP ---
ED Disposition - Plan for ED Patient: Instructions: ED Pelvic Pain [facility] Referrals: Roberto Pérez MD [Primary Care Provider] - Ada Murphy MD [STAFF PHYSICIAN] -
[2018-08-25 14:06] VITALS: BP 122/76; PULSE 99; RESP 16; O2SAT 99
== END 2018-08-25 14:07 | disposition home or self-care (01) ==
LOC: ED 09:24
PROVIDERS: Emergency Provider Emergency Medicine; Family Provider Family Medicine; PCP Family Medicine
DX: R10.2 Pelvic and perineal pain (principal); R11.0 Nausea; K59.00 Constipation, unspecified; R10.32 Left lower quadrant pain
CPT/HCPCS: 74177; 76830; 76856; 80048; 81001; 84703; 85025; 93976; 96361; 96374; 96375; 99284; J7030; Q9967; A4216; J2405

== ENCOUNTER 2018-08-26 05:01 | Observation (INO) | payer BC, SELFPAY ==
[2018-08-25 08:56] VITALS: BMI 31.4
[2018-08-26 05:03] VITALS: BP 135/98; PULSE 114; RESP 20; TEMP 36.9; O2SAT 100; BMI 30.7
[2018-08-26] MEDS: Ondansetron 4 MG/2 ML Vial IV (05:34)
[2018-08-26] MEDS: Morphine 4 MG/ML Syringe IV (05:36)
[2018-08-26 06:01] LABS: Absolute Lymphocyte Count 1.77 X10^3/ul (0.83-4.51); Absolute Neutrophil Count 6.3 X10^3/uL (2.0-7.7); Basophil# 0.03 X10^3/uL; Basophil% 0.3 % (0-1); Eosinophil# 0.45 X10^3/uL; Eosinophils% 4.8 % (0-5); Hematocrit 38.1 % (37-47); Hemoglobin 12.3 g/dl (12.0-15.0); Lymphocyte # 1.77 X10^3/ul (4.0); Lymphocyte % 18.9 % (19-41); Mean Corp Hgb Conc 32.3 g/gl (32-36); Mean Corpuscular Hgb 28.3 pg (27.0-32.0); Mean Corpuscular Volume 87.6 fL (81-99); Mean Platelet Vol. 9.8 fl (6.2-12.0); Monocyte# 0.83 X10^3/uL; Monocyte% 8.9 % (0-10); Neutrophil # 6.27 X10^3/uL (2.7-7.7); Platelet Count 280 K/mm3 (150-450); RBC Distribution Width CV 13.4 % (11.6-14.6); RBC Distribution Width SD 43.6 fl (35.1-43.9); Red Blood Count 4.35 M/mm3 (4.2-5.4); White Blood Count 9.4 K/mm3 (4.4-11.0)
[2018-08-26 06:04] LABS: POSITIVE COUNT NO; POSITIVE DIFFERENTIAL NO; POSITIVE MORPHOLOGY NO
[2018-08-26 06:24] LABS: Anion Gap 6 (5-15); BUN 11 mg/dL (7-18); BUN/Creat Ratio 17.4 RATIO (10-20); Calcium,Total 8.3 mg/dL (8.5-10.1); Chloride 105 mmol/L (98-107); Creatinine, Serum 0.63 mg/dL (0.55-1.02); EST Glomerular Filtration Rate 113 mL/min (>60); Est Glom Filt Rate - Afr Amer 136 mL/min (>60); Estimated Creatinine Clearance 97.64 ml/min; Glucose 90 mg/dL (74-106); Potassium 3.9 mmol/L (3.5-5.1); Sodium Level 140 mmol/L (136-145)
--- NOTE | 2018-08-26 06:47 | ED.VISSUMM ---
- ER Visit Summary Date of Service: 08/26/18 Chief Complaint: Pelvic pain History of Present Illness: The patient is a 38 F who presents with pelvic pain. This is been present for 5 days. She reports nausea but no vomiting or diarrhea. No fevers chest pain shortness of breath. She was seen in the emergency department yesterday and had laboratory studies, urinalysis, CT the abdomen as well as pelvic ultrasound. CT and pelvic ultrasound showed abnormal thickening and contour of the endometrium. Differentials included endometriosis, malignancy, pelvic inflammatory disease. Patient denies any vaginal bleeding or discharge. Ultrasound also showed findings possibly consistent with polycystic ovarian syndrome. She did have an endometrial ablation in last January. She has not had a menstrual period since that time. She denies any vaginal bleeding or vaginal discharge. Patient has been on anti-inflammatories. She was also prescribed oxycodone yesterday. She complains of severe pain despite these medications. Physical Examination: Heart rate 114 respiratory rate 20 vitals otherwise normal Patient crying and appears to be in pain Moist mucous membranes Heart regular rhythm tachycardia Lungs are clear Abdomen soft nondistended she does have some lower abdominal tenderness Test Results: CBC normal. BMP normal. Emergency Department Course and Treatment: Patient was treated with IV morphine and Zofran and states she feels a little bit better. She does not feel she can go home in her current condition as she is unable to manage her pain at home. I spoke to Dr. Devlin who agrees to admit. Treatment Plan: [] Disposition: Admit Impression: Pelvic pain This note was generated with [employer] dictation software. It may contain incorrect words, spelling, and punctuation that were not noted in review of the chart prior to signing ED Disposition - Plan for ED Patient: Referrals: Roberto Pérez MD [Primary Care Provider] -
[2018-08-26 07:13] VITALS: BP 175/74; PULSE 107; RESP 25; O2SAT 94
--- NOTE | 2018-08-26 07:28 | NURSING ---
MED SURG PELVIC PAIN [facility]
[2018-08-26 07:56] VITALS: BP 122/65; PULSE 80; RESP 16; O2SAT 98
[2018-08-26 08:12] VITALS: BMI 31.6
[2018-08-26 08:20] VITALS: BP 115/76; PULSE 45; RESP 16; TEMP 36.9; O2SAT 98
[2018-08-26] MEDS: Ketorolac 30 MG/ML Syringe IV ×3 (09:35→20:47)
[2018-08-26] MEDS: Lactated Ringers 1,000 ML 15 ML IV (09:36)
--- NOTE | 2018-08-26 13:19 | CASEMGMT ---
RN CM Assessment Presentation: pelvic pain, plan is for hysterectomy 08/27/18 Intro role of CM and purpose of RN CM assessment to patient and her . Demographics, PCP and Pharmacy verified. PCP: Dr. Pérez Specialists: Dr. Devlin Preferred [facility]acy: [facility] Insurance:[facility] Prescription Benefit: yes LNOK: Geoffrey Mcgrath, Living Arrangements: Pt lives independently with her . No care needs. able to assist at home if needs arise. Transportation: pt drives. DME: none HHC: none Patient DC goals: Home DC PLAN: Home on discharge. Marek ALVARADO RN ACM
[2018-08-26 14:00] VITALS: BP 105/59; PULSE 84; RESP 16; TEMP 37.1; O2SAT 98
--- NOTE | 2018-08-26 17:28 | PCM.HP.STD ---
History of Present Illness Date of Admission: 08/26/18 Chief Complaint: abdominal pain, pelvic pain, low back pain The patient is a 38 year old AB 5 female who presents with pelvic pain to the Emergency Department daily for the last two days. She is status post hysteroscopy, D and C and endometrial ablation procedure in Jan 2018. She has not had periods since the endometrial ablation. States in the last 3 months she has had severe, cramping pain like labor 11/10 pain scale. In the last few days this has been uncontrolled and unbearable. She has an RX for Oxycodone and has been using either Aleve or Ibuprofen in addition to medication for muscle spasms. Nothing has been controlling this pain in the last two days other than IV morphine given in the Emergency department. She is scheduled for hysterectomy at the end of August but is not able to wait for this due to pain and stated to the Emergency dept MD that she will go to another hospital if sent home from the Emergency Dept today. This more severe pain has been present for 5 days. She reports nausea but no vomiting or diarrhea. No fevers,chest pain, shortness of breath. Laboratory studies, urinalysis, CT the abdomen as well as pelvic ultrasound done 08/25/18. CT and pelvic ultrasound showed abnormal thickening and contour of the endometrium. Differential diagnosis includes: endometriosis, malignancy, pelvic inflammatory disease. Most likely her diagnosis is postablative syndrome by history. Ultrasound also showed findings possibly consistent with polycystic ovarian syndrome also. She is admitted for pain control while surgery is TBA. 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 hemorrhage Onset Date: ~2004 O72.1 Allergies sucralfate [From Carafate] Allergy (Verified 08/26/18 05:02) Hives acetaminophen [From Tylenol] Adverse Reaction (Verified 08/26/18 05:02) Nausea egg Adverse Reaction (Verified 08/26/18 05:02) Abd cramps/diarrhea Home Medications: Ambulatory Orders Medication Instructions Recorded oxycodone 5 mg capsule 5 mg PO Q6H PRN #15 cap 07/22/18 cyclobenzaprine 10 mg tablet 10 mg PO TID PRN #30 tab 08/06/18 ALPRAZolam [Xanax] 0.25 mg PO DAILY PRN PRN 08/26/18 Naproxen Sodium [Aleve] 220 mg PO BID PRN PRN 08/26/18 Surgical History: Surgical History (Last Updated 08/26/18 @ 17:50 by Lauren Devlin MD) Status post endometrial ablation Z98.890 History of cholecystectomy Z90.49 History of endometrial ablation Z98.890 January 2018 delivery delivered Onset Date: ~03/07/12 O82 H/O LEEP Onset Date: ~05/1999 Z98.890 H/O breast biopsy Onset Date: ~02/26/06 Z98.890 H/O breast implant Z98.82 H/O colonoscopy Onset Date: ~12/15/12 Z98.890 H/O dilation and curettage Z98.890 H/O tubal ligation Onset Date: ~2004 Z98.51 History of reversal of tubal ligation Onset Date: ~01/29/11 Z98.890 History of tonsillectomy Z90.89 Tubal ectopic Onset Date: ~1999 O00.109 Right ovarian ectopic Smoking Status: Former smoker Review of Systems Constitutional: Reports: - - denies vomiting, no diarrhea. Denies: Anorexia, Fever Eyes: Denies: Blurred vision Cardiovascular: Denies: Chest Pain, Chest Pressure, Chest Tightness Respiratory: Denies: Shortness of Breath Gastrointestinal: Reports: Abdominal Pain - mid -lower abdominal pain. Radiates to L inner thigh and to lower back. Genitourinary: Denies: Dysuria Gynecological: Denies: Vaginal bleeding, Vaginal discharge VTE Information - Inpt Only VTE Present on Admission: No VTE Mechan Device Prophylaxis: None VTE Pharm Prophylaxis ordered?: No - Physical Exam General: Alert, Oriented x3, Cooperative, No apparent distress HEENT: Atraumatic, EOMI Oral: Moist Mucosa Neck: Supple Lungs: Clear to auscultation Cardiovascular: Regular rate, Regular Rhythm Abdomen: Soft - minimally tender in lower abdomen, without rebound or guarding. Extremities: No clubbing, No cyanosis, No edema Neurological: Cranial nerves II-XII grossly intact Psych/Mental Status: Normal Affect Vital Signs Temp Pulse Resp BP Pulse Ox 98.8 F 84 16 105/59 L 98 08/26/18 14:00 08/26/18 14:00 08/26/18 14:00 08/26/18 14:00 08/26/18 14:00 Oxygen Delivery Method Room Air Weight: 78.471 kg Body Mass Index (BMI) 31.6 Intake and Output for Last 24 Hours 08/24/18 08/25/18 08/26/18 23:59 23:59 23:59 Intake Total 210 / 210 Balance 210 / 210 Laboratory Tests Past 24 Hrs 08/26/18 08/26/18 05:15 05:15 WBC 9.4 RBC 4.35 Hgb 12.3 Hct 38.1 MCV 87.6 MCH 28.3 MCHC 32.3 RDW 13.4 RDW Differential 43.6 Plt Count 280 MPV 9.8 Immature Gran % (Auto) 0.100 Neut % (Auto) 67.0 Lymph % (Auto) 18.9 L [place] % (Auto) 8.9 Eos % (Auto) 4.8 Baso % (Auto) 0.3 Absolute Neuts (auto) 6.3 Absolute Lymphs (auto) 1.77 Total Counted Not Reportable Sodium 140 Potassium 3.9 Chloride 105 Carbon Dioxide 29.0 Anion Gap 6 BUN 11 Creatinine 0.63 Estim Creat Clear Calc 97.64 Est GFR (MDRD) Af Amer 136 Est GFR (MDRD) Non-Af 113 BUN/Creatinine Ratio 17.4 Glucose 90 Calcium 8.3 L Assessment/Plan All Active Problems (Last Updated 08/26/18 @ 17:50 by Lauren Devlin MD) HPV test positive (Acute) Abnormal uterine bleeding (Acute) A/P: Lower abdominal and pelvic pain. Postablative syndrome, s/p endometrial ablation in Jan 2018 Symptoms of pain worsening over last 3 months. Surgery scheduled for end of August (as patient had deferred this)... but now with exacerbation of pain requiring IV morphine. Pain uncontrolled with muscle relaxant, oral Oxycodone. NSAID (Aleve or Ibuprofen). Admit for pain control. prn Morphine and antiemetics activity ad alvarez. IV to saline lock if tolerating po well Diet as tolerated for today NPO for surgery after 5 am 08/27/18 Plan LAVH , bilateral salpingectomy as scheduled for 08/27/18 at noon. Pt and s.o. advised of plan for surgery 2/2 uncontrolled pelvic and lower abdominal pain. Ovaries to remain in place. Reviewed anticipated surgical procedure. Plan for dischg on POD#1 if stable and discharge criteria met. All questions re surgery answered to patient's and s.o.'s satisfaction. Consents signed, witnessed and on chart.
[2018-08-26 20:50] VITALS: BP 108/61; PULSE 78; RESP 16; TEMP 36.7; O2SAT 99
[2018-08-27] VITALS (13 sets, daily range): BP systolic 103–120; BP diastolic 63–82; PULSE 66–104; RESP 16–18; TEMP 36.3–37.1; O2SAT 92–98; BMI 31.6
[2018-08-27] MEDS: Ketorolac 30 MG/ML Syringe IV ×3 (02:50→19:32)
--- NOTE | 2018-08-27 10:56 | NURSING ---
call placed to AC report given to Lelo KABA
--- NOTE | 2018-08-27 12:00 | HYST_PTH ---
PATIENT: LATHA ANGELA LOC: MS2 U#:[id number] AGE/SX: 38/F ROOM: [facility] [place] RE08/26/[address]: Dr. Lauren Devlin MD : 1980 BED: 1 DIS: 08/28/2018 SPEC #: [id number] RECD: 08/27/18 16:18 STATUS: VINOD RELisa #: [id number] [place]: 08/27/18 12:[address]: Lauren Devlin DEPT: SURGICAL PATHOLOGY RECD BY: Arash Storm ENTERED: 08/28/18 11:18 SP TYPE: HYSTERECT OTHR DR: Dr. Roberto Pérez MD Tissues: Uterus, NOS Procedures: Surgery Specimen Level V HEADER OPERATION: Hysterectomy, lap-assisted, salpingectomy PRE-OP DIAGNOSIS: HPV test positive (acute); abnormal uterine bleeding (acute) TISSUE SUBMITTED: Uterus and fallopian tubes MICROSCOPIC DIAGNOSIS Uterus and bilateral fallopian tubes, hysterectomy and bilateral salpingectomy: Cervix - chronic inflammation and squamous metaplasia. - negative for dysplasia. Endometrium - focal area of proliferative endometrium. Myometrium - adenomyosis. Bilateral fallopian tubes - no pathologic diagnosis. See comment. MAN:dae 09/01/18 COMMENT The entire cervix is examined. The endometrium is mostly denuded. Please make reference to previous specimens ([id number]) endometrial curettings with diagnosis of weakly proliferative to inactive endometrium; ([id number]) cervix, biopsy with diagnosis of squamous cell carcinoma in situ; ([id number]) LEEP cone biopsy, central with diagnosis of residual focus of squamous cell carcinoma in situ and ([id number]) cervical biopsy at 3 o'clock with diagnosis of squamous cell carcinoma in situ and cervical biopsy at 5 o'clock with diagnosis of squamous dysplasia, moderate to severe. MICROSCOPIC DESCRIPTION Slides are reviewed. GROSS DESCRIPTION Received in fixative is one container labeled with the patient's name and designated uterus and fallopian tubes. The specimen consists of a fragmented uterus and cervix with separate bilateral fallopian tubes. The uterus and cervical fragments measure 10.2 x 8.5 x 5.4 cm. The uterine weight is 190 gm. The serosal surface of the uterus is kirk[place] and smooth, and is deformed by some myometrial nodularity. Grossly, no adhesions are found. The detached fragments of cervix measure 4 cm in length x 3.9 cm in diameter. The exocervical mucosa is kirkland-pink and smooth. The patulous cervical os measures 1.7 cm in length. The cervix is opened to reveal a narrowed, but patent endocervical canal. The uterus is opened to reveal a distorted endometrial cavity measuring 3 x 3.2 cm with an average endometrial thickness of 0.1 cm. The endometrial surface is reddish-pink with some recent hemorrhage. The myometrium is serially cross-sectioned to reveal several areas of myometrial congestion, associated with vague nodularity. Grossly, no fibroids are identified. The first fallopian tube measures 4.5 cm in length x 0.5 cm in diameter. The serosal surface is reddish-pink and smooth. A fimbriated end is present. Cross-sections demonstrate a pinpoint lumen. The contralateral fallopian tube measures 2.8 cm in length x 0.7 cm in diameter. The serosal surface is reddish-pink and slightly irregular in contour. A fimbriated end is present. Cross-sections demonstrate a pinpoint lumen. [employer]ified [employer] sections are submitted as follows: 1 & 2 - cervix, 3-6 - anterior and posterior endomyometrium, 7 & 8 - myometrium (rule out adenomyosis), 9 - first fallopian tube, 10 - contralateral fallopian tube. / CE:dae 08/28/18 The rest of the cervix is submitted in four more cassettes, -14. / SJ:dae 08/29/18 TC:5 CPT: 39086
[2018-08-27] MEDS: Bupiv/Epi 0.5% Mpf 30 ML Vial (13:40)
[2018-08-27] MEDS: Lactated Ringers 1,000 ML 125 ML IV ×2 (16:18→22:17)
--- NOTE | 2018-08-27 16:48 | PCM.OPRPT ---
Report of Operation Date of Procedure: 08/27/18 Pre-Operative Diagnosis: Chronic pelvic pain. Prior endometrial ablation. Postablative syndrome Post-Operative Diagnosis: Same Surgery/Procedure Performed:: LAVH Bilateral salpingectomy Description of Surgical Findings:: Enlarged uterus with likely serosal fibroids, filling pelvis. Normal ovaries bilaterally. Fallopian tubes with partial bilateral salpingectomy noted prior, (no Filshie clips) Minimal to no pelvic adhesions noted in pelvis. Normal appearing bowel , omentum, RUQ/liver edge. Normal appearing appendix. armature winder helper repair: Mariza Carlton armature winder helper repair: Sonia Urrutia Type of Anesthesia:: General Anesthesiologist: Krystina Arnett - ELIESER Specimen's removed: Bilateral fallopian tubes. Uterus and cervix, morcellated Drains: Esposito Estimated Blood Loss (mL): 250 cc Fluids Replaced: LR Description of Procedure: Narrative account: After the risks, benefits and alternatives of the procedure were reviewed with the patient , informed consent was obtained. The patient was taken to the Operating room with an IV running . She was positioned in the dorsal supine position on the operating table and given general anesthesia. Once asleep she was positioned to the dorsal lithotomy position with the arms tucked at the sides and prepped and draped in the usual sterile fashion. A Esposito catheter was inserted to drain the bladder. The weighted speculum was placed into the vagina and a single tooth tenaculum was placed at the cervix. A Lidia cannula was inserted into the cervix and secured into placed with the single - toothed tenaculum. Attention was then turned to the anterior abdominal wall. the retread operator's gloves were changed and skin incisions were created at the infraumbilical and suprapubic skin and at a point approximately fdc between the suprapubic and infraumbilical skin incisions. Local anesthesia was used to infiltrate the skin where the trocar incision sites were created. A transverse 5 mm infraumbilical skin incision , a transverse 5 mm suprapubic incision and an transverse 5 mm midline incision were created. A Veress needle was inserted in to the peritoneal cavity at the infraumbilical skin incision while maintaining upward traction of the anterior abdominal wall at the umbilicus. There was free drop of saline, free flow of CO2 and low opening pressure noted. Once the intraabdominal pressure had reached approximately 15 mm Hg, the Veress needle was removed and a bladeless 5 mm trocar was inserted into the peritoneal cavity. Correct placement was confirmed using the laparoscope. Under direct visualization the other two 5 mm bladeless trocars were inserted into the peritoneal cavity. The fallopian tubes were retracted medially and using a LigaSure device the fallopian tube was divided from the ovary and the mesosalpinx, leaving the fallopian tube free at each side of the uterus other than the attachment to the uterus. The uteroovarian pedicles were then divided using a [place] LigaSure device. The broad ligament was then divided down to the level of the round ligament on both sides. At this point the laparoscopic portion of the case was completed. The trocars were left in place, but the instruments were removed and gas turned off. A sterile drape was used to cover the abdomen. Attention was then turned to the vaginal portion of the case. The Lidia cannula was removed and the single toothed tenaculum repositioned on the cervix. The cervical mucosal was then incised circumferentially using Bovie cautery and a knife. The posterior cul de sac was entered by sharp dissection with Jenkins scissors and a weighted speculum was placed into the posterior cul se sac. Dissection then was initiated at the anterior cervix to enter the anterior cul se sac. The uterosacral ligaments were clamped bilaterally with curved Gigi clamps and the pedicles divided and suture ligated and tagged for later identification. Next the cardinal ligament was clamped bilaterally and divided and suture ligated. Adequate hemostasis was noted. The anterior cul de sac peritoneum was then entered by sharp dissection and a narrow Cyn retractor was placed into the anterior cul de sac to retract the bladder out of harm's way for the remainder of the case. The uterine arteries were clamped bilaterally , divided and suture ligated. At this point little descensus was noted due to the enlarged uterus, and morcellation was begun. Each section was removed by using either the knife or a Jenkins scissors. The cervix and sequential portions of the lower uterine segment anteriorly and posteriorly were removed and set aside. Dissection then continued along each side of the uterus. Each pedicle was secured with a Gigi clamp, divided and suture ligated until ultimately the uterine fundus was reached. The superior pedicles on each side were secured with a curved Gigi clamp and the remaining uterus and attached fallopian tubes were surgically amputated and set aside. The superior pedicle was then suture ligated, then free tied and tagged for identification. The superior pedicles were dry. There was bleeding noted along the posterior vaginal cuff . The peritoneum was then closed with a running purse string suture of 1 Vicryl, incorporating the superior pedicles and uterosacral ligament tags. Excellent hemostasis was noted. The vaginal cuff was then reapproximated using interrupted and figure of eight stitches of 1 Vicryl. Excellent hemostasis was noted. The Esposito was attached to the Esposito bag. and clear yellow urine returned. A second look was performed with the laparoscope: excellent hemostasis was noted at all pedicles and at the vaginal cuff. Mina was sprayed along the cuff and pedicles for additional hemostasis. The pneumoperitoneum was reduced and all instruments and trocars were removed. The skin incisions were closed with 4-0 Monocryl in a subcuticular fashion. Sterile dressings were applied. The patient was returned to dorsal supine position and awakened from general anesthesia. She was then transferred to the recovery room bed in stable condition after tolerating the procedure well. Sponge, lap, needle and instrument counts correct times two. Medications given preop and intraoperatively included: Cefotetan IV was given hog confinement system manager to the operating room , Marcaine with 1/200,00 epinephrine was used as a subcutaneous injection at the trocar skin incision sites, and Toradol 30 mg IV x one was given. For a complete listing of medications given preop and intraoperatively, please see the anesthesia record. - Admit VTE Documentation VTE Present on Admission: No VTE Mechan Device Prophylaxis: SCD's VTE Pharm Prophylaxis ordered?: Yes
--- NOTE | 2018-08-27 16:54 | OP.PCM_ITS ---
Report of Operation Date of Procedure: 08/27/18 Pre-Operative Diagnosis: Chronic pelvic pain. Prior endometrial ablation. Postablative syndrome Post-Operative Diagnosis: Same Surgery/Procedure Performed:: LAVH Bilateral salpingectomy Description of Surgical Findings:: Enlarged uterus with likely serosal fibroids, filling pelvis. Normal ovaries bilaterally. Fallopian tubes with partial bilateral salpingectomy noted prior, (no Filshie clips) Minimal to no pelvic adhesions noted in pelvis. Normal appearing bowel , omentum, RUQ/liver edge. Normal appearing appendix. mortgage or loan underwriter: Mariza Carlton mortgage or loan underwriter: Sonia Urrutia Type of Anesthesia:: General Anesthesiologist: Krystina Arnett - ELIESER Specimen's removed: Bilateral fallopian tubes. Uterus and cervix, morcellated Drains: Esposito Estimated Blood Loss (mL): 250 cc Fluids Replaced: LR Description of Procedure: Narrative account: After the risks, benefits and alternatives of the procedure were reviewed with the patient , informed consent was obtained. The patient was taken to the Operating room with an IV running . She was positioned in the dorsal supine position on the operating table and given general anesthesia. Once asleep she was positioned to the dorsal lithotomy position with the arms tucked at the sides and prepped and draped in the usual sterile fashion. A Esposito catheter was inserted to drain the bladder. The weighted speculum was placed into the vagina and a single tooth tenaculum was placed at the cervix. A Lidia cannula was inserted into the cervix and secured into placed with the single - toothed tenaculum. Attention was then turned to the anterior abdominal wall. the utility system operator's gloves were changed and skin incisions were created at the infraumbilical and suprapubic skin and at a point approximately snf between the suprapubic and infraumbilical skin incisions. Local anesthesia was used to infiltrate the skin where the trocar incision sites were created. A transverse 5 mm infraumbilical skin incision , a transverse 5 mm suprapubic incision and an transverse 5 mm midline incision were created. A Veress needle was inserted in to the peritoneal cavity at the infraumbilical skin incision while maintaining upward traction of the anterior abdominal wall at the umbilicus. There was free drop of saline, free flow of CO2 and low opening pressure noted. Once the intraabdominal pressure had reached approximately 15 mm Hg, the Veress needle was removed and a bladeless 5 mm trocar was inserted into the peritoneal cavity. Correct placement was confirmed using the laparoscope. Under direct visualization the other two 5 mm bladeless trocars were inserted into the peritoneal cavity. The fallopian tubes were retracted medially and using a LigaSure device the fallopian tube was divided from the ovary and the mesosalpinx, leaving the fallopian tube free at each side of the uterus other than the attachment to the uterus. The uteroovarian pedicles were then divided using a [place] LigaSure device. The broad ligament was then divided down to the level of the round ligament on both sides. At this point the laparoscopic portion of the case was completed. The trocars were left in place, but the instruments were removed and gas turned off. A sterile drape was used to cover the abdomen. Attention was then turned to the vaginal portion of the case. The Lidia cannula was removed and the single toothed tenaculum repositioned on the cervix. The cervical mucosal was then incised circumferentially using Bovie cautery and a knife. The posterior cul de sac was entered by sharp dissection with Jenkins scissors and a weighted speculum was placed into the posterior cul se sac. Dissection then was initiated at the anterior cervix to enter the anterior cul se sac. The uterosacral ligaments were clamped bilaterally with curved Gigi clamps and the pedicles divided and suture ligated and tagged for later identification. Next the cardinal ligament was clamped bilaterally and divided and suture ligated. Adequate hemostasis was noted. The anterior cul de sac peritoneum was then entered by sharp dissection and a narrow Cyn retractor was placed into the anterior cul de sac to retract the bladder out of harm's way for the remainder of the case. The uterine arteries were clamped bilaterally , divided and suture ligated. At this point little descensus was no kaylen due to the enlarged uterus, and morcellation was begun. Each section was removed by using either the knife or a Jenkins scissors. The cervix and sequential portions of the lower uterine segment anteriorly and posteriorly were removed and set aside. Dissection then continued along each side of the uterus. Each pedicle was secured with a Gigi clamp, divided and suture ligated until ultimately the uterine fundus was reached. The superior pedicles on each side were secured with a curved Gigi clamp and the remaining uterus and attached fallopian tubes were surgically amputated and set aside. The superior pedicle was then suture ligated, then free tied and tagged for identification. The superior pedicles were dry. There was bleeding noted along the posterior vaginal cuff . The peritoneum was then closed with a running purse string suture of 1 Vicryl, incorporating the superior pedicles and uterosacral ligament tags. Excellent hemostasis was noted. The vaginal cuff was then reapproximated using interrupted and figure of eight stitches of 1 Vicryl. Excellent hemostasis was noted. The Esposito was attached to the Esposito bag. and clear yellow urine returned. A second look was performed with the laparoscope: excellent hemostasis was noted at all pedicles and at the vaginal cuff. Mina was sprayed along the cuff and pedicles for additional hemostasis. The pneumoperitoneum was reduced and all instruments and trocars were removed. The skin incisions were closed with 4-0 Monocryl in a subcuticular fashion. Sterile dressings were applied. The patient was returned to dorsal supine position and awakened from general anesthesia. She was then transferred to the recovery room bed in stable condition after tolerating the procedure well. Sponge, lap, needle and instrument counts correct times two. Medications given preop and intraoperatively included: Cefotetan IV was given product operations associate to the operating room , Marcaine with 1/200,00 epinephrine was used as a subcutaneous injection at the trocar skin incision sites, and Toradol 30 mg IV x one was given. For a complete listing of medications given preop and intraoperatively, please see the anesthesia record. - Admit VTE Documentation VTE Present on Admission: No VTE Mechan Device Prophylaxis: SCD's VTE Pharm Prophylaxis ordered?: Yes
[2018-08-27] MEDS: oxyCODONE 5 MG Tablet PO ×3 (17:57→23:52)
[2018-08-27] MEDS: Ondansetron 4 MG/2 ML Vial IV (22:00)
[2018-08-27] MEDS: Docusate Sodium 100 MG Capsule PO (22:02)
[2018-08-27] MEDS: Ibuprofen 600 MG Tablet PO (22:02)
[2018-08-28] MEDS: Ketorolac 30 MG/ML Syringe IV (02:18)
[2018-08-28] MEDS: oxyCODONE 5 MG Tablet PO ×2 (04:01→09:42)
[2018-08-28] MEDS: Ondansetron 4 MG/2 ML Vial IV ×2 (04:02→09:42)
[2018-08-28 04:08] VITALS: BP 118/74; PULSE 90; RESP 16; TEMP 36.8; O2SAT 99
[2018-08-28 05:51] LABS: Hemoglobin 11.2 g/dl (12.0-15.0); Mean Corp Hgb Conc 32.9 g/gl (32-36); Mean Corpuscular Hgb 27.9 pg (27.0-32.0); Mean Corpuscular Volume 84.6 fL (81-99); Mean Platelet Vol. 9.6 fl (6.2-12.0); Platelet Count 305 K/mm3 (150-450); RBC Distribution Width SD 39.9 fl (35.1-43.9); Red Blood Count 4.02 M/mm3 (4.2-5.4); White Blood Count 12.6 K/mm3 (4.4-11.0)
[2018-08-28 05:56] LABS: Scan Indicated on CBC? Y/N NO
[2018-08-28 06:13] LABS: Creatinine, Serum 0.59 mg/dL (0.55-1.02); EST Glomerular Filtration Rate 122 mL/min (>60); Est Glom Filt Rate - Afr Amer 148 mL/min (>60); Estimated Creatinine Clearance 104.26 ml/min
--- NOTE | 2018-08-28 07:32 | PCM.DC.VHY ---
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 Nothing in vagina for 4-6 wk and no lifting more than 20 # for 4-6 wks to allow healing. Allergies/Adverse Reactions: Allergies sucralfate [From Carafate] Allergy (Verified 08/26/18 05:02) Hives acetaminophen [From Tylenol] Adverse Reaction (Verified 08/26/18 05:02) Nausea egg Adverse Reaction (Verified 08/26/18 05:02) Abd cramps/diarrhea Medications to take at Discharge cyclobenzaprine 10 mg tablet 10 mg PO TID PRN #30 tab 08/06/18 ALPRAZolam [Xanax] 0.25 mg PO DAILY PRN PRN 08/26/18 Naproxen Sodium [Aleve] 220 mg PO BID PRN PRN 08/26/18 Docusate Sodium [Colace] 100 mg PO BID #30 capsule 08/28/18 Ibuprofen [Motrin] 600 mg PO Q6H PRN PRN #30 tablet 08/28/18 Oxycodone [Oxyir] 5 - 10 mg PO Q6H PRN PRN 7 Days #20 tablet 08/28/18 Polyethylene Glycol 3350 [Miralax] 17 gm PO DAILY PRN #14 packet 08/28/18 The following prescriptions were given: Ibuprofen [Motrin] 600 mg PO Q6H PRN PRN #30 tablet PRN Reason: Mild Pain (1-3/10) Oxycodone [Oxyir] 5 - 10 mg PO Q6H PRN PRN 7 Days #20 tablet PRN Reason: Mod-Severe Pain (4-10/10) Polyethylene Glycol 3350 [Miralax] 17 gm PO DAILY PRN #14 packet PRN Reason: Constipation Docusate Sodium [Colace] 100 mg PO BID #30 capsule Primary Care Physician: Roberto Pérez MD [Primary Care Provider] - Test Results: Test results from this visit will be discussed in further detail at your follow-up appointment, if applicable. Please Follow Up With: Lauren Devlin MD - [phone] When: in 2 wks for initial postop check up Please Follow Up With: Ada Murphy MD When: 6 wk for final postop check up Proposed Discharge Date: 08/28/18
[2018-08-28 07:35] VITALS: BP 113/64; PULSE 102; RESP 18; TEMP 37.1; O2SAT 97
--- NOTE | 2018-08-28 07:38 | DCINST_ITS ---
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 Nothing in vagina for 4-6 wk and no lifting more than 20 # for 4-6 wks to allow healing. Allergies/Adverse Reactions: Allergies sucralfate [From Carafate] Allergy (Verified 08/26/18 05:02) Hives acetaminophen [From Tylenol] Adverse Reaction (Verified 08/26/18 05:02) Nausea egg Adverse Reaction (Verified 08/26/18 05:02) Abd cramps/diarrhea Medications to take at Discharge cyclobenzaprine 10 mg tablet 10 mg PO TID PRN #30 tab 08/06/18 ALPRAZolam [Xanax] 0.25 mg PO DAILY PRN PRN 08/26/18 Naproxen Sodium [Aleve] 220 mg PO BID PRN PRN 08/26/18 Docusate Sodium [Colace] 100 mg PO BID #30 capsule 08/28/18 Ibuprofen [Motrin] 600 mg PO Q6H PRN PRN #30 tablet 08/28/18 Oxycodone [Oxyir] 5 - 10 mg PO Q6H PRN PRN 7 Days #20 tablet 08/28/18 Polyethylene Glycol 3350 [Miralax] 17 gm PO DAILY PRN #14 packet 08/28/18 The following prescriptions were given: Ibuprofen [Motrin] 600 mg PO Q6H PRN PRN #30 tablet PRN Reason: Mild Pain (1-3/10) Oxycodone [Oxyir] 5 - 10 mg PO Q6H PRN PRN 7 Days #20 tablet PRN Reason: Mod-Severe Pain (4-10/10) Polyethylene Glycol 3350 [Miralax] 17 gm PO DAILY PRN #14 packet PRN Reason: Constipation Docusate Sodium [Colace] 100 mg PO BID #30 capsule Primary Care Physician: Roberto Pérez MD [Primary Care Provider] - Test Results: Test results from this visit will be discussed in further detail at your follow- up appointment, if applicable. Please Follow Up With: Lauren Devlin MD - [phone] When: in 2 wks for initial postop check up Please Follow Up With: Ada Murphy MD When: 6 wk for final postop check up Proposed Discharge Date: 08/28/18
[2018-08-28] MEDS: Docusate Sodium 100 MG Capsule PO (07:45)
[2018-08-28] MEDS: Ketorolac 10 MG Tablet PO (07:46)
[2018-08-28] MEDS: Enoxaparin 40 MG/0.4 ML Syringe SC (10:01)
--- NOTE | 2018-08-28 13:12 | PN.OBGYN_ITS ---
Subjective: HD# 3 POD # 1 LAVH, Bilateral salpingectomy. Doing really well. Minimal pain and using ibuprofen for this. Less painful than prior to her surgery. relates catheter removed and able to void already. Tolerating diet well. No concerns voiced. Relates issues with her breast implants and hoping for explant in September/October but this will wait until after her recovery from hysterectomy. Expressing frustration over multiple issues in the last year. Objective: Sitting up in bed, NAD - Physical Exam General: Alert, Oriented x3, Cooperative, No apparent distress HEENT: Atraumatic Neck: Supple Abdomen: Soft, Non Tender Skin: Incision - L/S incisions CDI Op sites in place. Neurological: Cranial nerves II-XII grossly intact Psych/Mental Status: Normal Affect Vital Signs Temp Pulse Resp BP Pulse Ox 98.7 F 102 H 18 113/64 97 08/28/18 07:35 08/28/18 07:35 08/28/18 07:35 08/28/18 07:35 08/28/18 07:35 Oxygen Delivery Method Room Air Weight: 78.471 kg Body Mass Index (BMI) 31.6 Intake and Output for Last 24 Hours 08/26/18 08/27/18 08/28/18 23:59 23:59 23:59 Intake Total 1310 / 1310 4229 / 4229 1487 / 1487 Output Total 650 / 650 1500 / 1500 Balance 1310 / 1310 3579 / 3579 -13 / -13 Laboratory Tests Past 24 Hrs 08/28/18 08/28/18 05:32 05:32 WBC 12.6 H RBC 4.02 L Hgb 11.2 L Hct 34.0 L MCV 84.6 MCH 27.9 MCHC 32.9 RDW 13.0 RDW Differential 39.9 Plt Count 305 MPV 9.6 Creatinine 0.59 Estim Creat Clear Calc 104.26 Est GFR (MDRD) Af Amer 148 Est GFR (MDRD) Non-Af 122 Medical Necessity - Tobacco Use Smoking Status: Former smoker Assessment/Plan All Active Problems (Last Updated 08/26/18 @ 17:50 by Lauren Devlin MD) HPV test positive (Acute) Abnormal uterine bleeding (Acute) POD#1 LAVH, Bilateral Salpingectomy Stable postop. Home today when criteria met. RTO in 2 wk and in 6 wk for postop appointments. reviewed discharge instructions, including activity restr ictions.
--- NOTE | 2018-08-28 21:07 | DS.PCM_ITS ---
Discharge Date and Diagnosis Date of Admission: 08/26/18 - severe pelvic pain. Post ablation syndrome Date of Discharge: 08/28/18 - S/P LAVH, bilateral salpingectomy Hospital Course and Treatment Operations: hysterectomy - LAVH , bilateral salpingectomy Summary of Care Provided: The patient is a 38 year old female with history of severe pelvic pain radiating to back and L thigh over the last 3 months. She has had two C section deliveries, and had an endometrial ablation in Jan 2018 Presented to the emergency dept on 08/25/18 and again on 08/26/18 with CC of severe labor like pelvic pain. Sates that the medication given to control the pain is not effective. She has been taking OxyIR and Ibuprofen or Aleve. Allergic to Tylenol and unable to take. Pain improved with IV morphine but recurrent within a day and represented. She was scheduled for LAVH, bilateral salpingectomy at the end of August but states no longer able to wait for surgery. Admitted on 08/26/18 for pain control. Pain controlled with IV Toradol LAVH, bilateral salpingectomy performed on 08/27/18 Procedure uncomplicated with EBL of approx 250 cc By POD#1, requiring minimal pain medication and tolerating diet. Ready for dischg home. - Physical Exam Vital Signs Temp Pulse Resp BP Pulse Ox 98.7 F 102 H 18 113/64 97 08/28/18 07:35 08/28/18 07:35 08/28/18 07:35 08/28/18 07:35 08/28/18 07:35 Oxygen Delivery Method Room Air Weight: 78.471 kg Body Mass Index (BMI) 31.6 Intake and Output for Last 24 Hours 08/26/18 08/27/18 08/28/18 23:59 23:59 23:59 Intake Total 1310 / 1310 4229 / 4229 1487 / 1487 Output Total 650 / 650 1500 / 1500 Balance 1310 / 1310 3579 / 3579 -13 / -13 Laboratory Tests Past 24 Hrs 08/28/18 08/28/18 05:32 05:32 WBC 12.6 H RBC 4.02 L Hgb 11.2 L Hct 34.0 L MCV 84.6 MCH 27.9 MCHC 32.9 RDW 13.0 RDW Differential 39.9 Plt Count 305 MPV 9.6 Creatinine 0.59 Estim Creat Clear Calc 104.26 Est GFR (MDRD) Af Amer 148 Est GFR (MDRD) Non-Af 122 Discharge Diet: No Restrictions Discharge Activity: May not drive while taking narcotic pain medications., May Shower, May Take a Tub Bath Return to work on:: 10/06/18 May resume sexual activity in: 4-6 weeks Call your doctor if you observe: Fever of 101 or Higher, Inability to have a bowel movement, Using more than one pad per hour, Calf discomfort, Uncontrolled pain Change Dressing in (Days):: 4 Remove Dressing in (days):: 4 Cleanse incision/area with: Soap & Water, Keep Dressing Clean & Dry Home Medications: Medications to take at Discharge cyclobenzaprine 10 mg tablet 10 mg PO TID PRN #30 tab 08/06/18 ALPRAZolam [Xanax] 0.25 mg PO DAILY PRN PRN 08/26/18 Naproxen Sodium [Aleve] 220 mg PO BID PRN PRN 08/26/18 Docusate Sodium [Colace] 100 mg PO BID #30 capsule 08/28/18 Ibuprofen [Motrin] 600 mg PO Q6H PRN PRN #30 tablet 08/28/18 Oxycodone [Oxyir] 5 - 10 mg PO Q6H PRN PRN 7 Days #20 tablet 08/28/18 Polyethylene Glycol 3350 [Miralax] 17 gm PO DAILY PRN #14 packet 08/28/18 Following Prescrptions Were Given to Patient: Ibuprofen [Motrin] 600 mg PO Q6H PRN PRN #30 tablet PRN Reason: Mild Pain (1-10) Oxycodone [Oxyir] 5 - 10 mg PO Q6H PRN PRN 7 Days #20 tablet PRN Reason: Mod-Severe Pain (4-1010) Polyethylene Glycol 3350 [Miralax] 17 gm PO DAILY PRN #14 packet PRN Reason: Constipation Docusate Sodium [Colace] 100 mg PO BID #30 capsule Primary Care Physician: Roberto Pérez MD [Primary Care Provider] - Please Follow Up With: Lauren Devlin MD - [phone] When: in 2 wks for initial postop check up Please Follow Up With: Ada Murphy MD When: 6 wk for final postop check up Additional Instructions: 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 Nothing in vagina for 4-6 wk a nd no lifting more than 20 # for 4-6 wks to allow healing. Medical Necessity - Tobacco Use Smoking Status: Former smoker Meaningful Use Info Meaningful Use Diagnoses (Choose all that apply): None applicable
== END 2018-08-28 10:17 | disposition home or self-care (01) ==
LOC: ED 05:31 → MS2 07:52
PROVIDERS: Admitting Provider Obstetrics & Gynecology; Emergency Provider Emergency Medicine; Family Provider Family Medicine; PCP Family Medicine; Visit Provider Obstetrics & Gynecology
PROC: 0UT9FZZ Resection of Uterus, Via Natural or Artificial Opening With Percutaneous Endoscopic Assistance (ICD-10-PCS; CPT 58552; principal; 2018-08-27 11:35)
DX: R87.612 Low grade squamous intraepithelial lesion on cytologic smear of cervix (LGSIL) (principal); N80.0 Endometriosis of uterus; F41.9 Anxiety disorder, unspecified; F32.9 Major depressive disorder, single episode, unspecified; Z87.42 Personal history of other diseases of the female genital tract; Z79.899 Other long term (current) drug therapy; Z87.891 Personal history of nicotine dependence; G89.29 Other chronic pain; K21.9 Gastro-esophageal reflux disease without esophagitis
CPT/HCPCS: 00940; 58552; 36415; 80048; 82565; 85025; 85027; 88307; 96361; 96372; 96374; 96375; 96376; 99218; 99285; J7120; A4216; G0378; J2405

== ENCOUNTER 2018-11-11 11:24 | Observation (INO) | payer BC, SELFPAY ==
[2018-07-07 11:34] VITALS: BMI 31.4
[2018-10-09 14:34] VITALS: BMI 31.6
--- NOTE | 2018-11-10 21:15 | HP.PCM_ITS ---
History and Physical Date of Admission: 11/11/18 HISTORY OF PRESENT ILLNESS 38 year old woman presents with bilateral breast pain that has worsened over the past year. She initially had saline textured implants placed under the muscle in 2001, (McGhan 168, 350 ml). She has had pain intermittently in her breasts since they have been put in. A year later, she developed cysts on her implants near the implant valve and the implants were removed and new ones re-implanted. She felt better for a while but the symptoms returned a year ago after a cholecystectomy and partial hysterectomy. The cysts returned in the retroareolar area bilaterally and they were biopsied and found to be negative according to the patient. She has also had flu-like symptoms in the past and intermittent swollen lymph nodes. She has intermittent night sweats. She had tried Physical Therapy in the past without much improvement in the painful symptomatology. 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 She denies lupus, rheumatoid arthritis, and fibromyalgia). She had a mammogram done in June, which was normal according to the patient. She presents at this time for further evaluation and treatment. 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 PAST SURGICAL HISTORY cholecystectomy endometrial ablation partial hysterectomy delivery LEEP breast biopsy breast implants colonoscopy dilation and curettage tubal ligation reversal of tubal ligation tonsillectomy Tubal ectopic ALLERGIES sucralfate [From Carafate] acetaminophen [From Tylenol] egg MEDICATIONS cyclobenzaprine ALPRAZolam [Xanax] Naproxen Sodium [Aleve] Docusate Sodium [Colace] Ibuprofen [Motrin] Polyethylene Glycol 3350 [Miralax] FAMILY HISTORY Father - Heart disease Mother - Diabetes, Colon cancer, CVA (cerebral vascular accident) Aunt - Breast cancer Grandmother - Breast cancer Grandmother , Age 38, Breast cancer SOCIAL HISTORY Smoking Status: Former smoker alcohol intake: never substance use type: does not use REVIEW OF SYSTEMS General - Denies fever and weight loss. Has fatigue. Has intermittent night sweats. Has intermittent flu-like symptoms. Eyes - Denies cataracts and glaucoma. ENT - Denies nasal congestion and sore throat. Has had swollen lymph nodes in the neck. Endocrine - Denies excessive thirst and urination. Had thyroid surgery for Hurthle cell. Had textured implants placed in 2001. Has family history of breast cancer. Skin - Denies suspicious lesions and skin cancer. Musculoskeletal - Has joint pain, joint stiffness, weakness of muscles and joints, back pain. Denies arthritis. Neuro - Has headaches. Has lightheadedness. Cardiovascular - Denies chest pain and shortness of breath with exertion. Has fatigue and lightheadedness. Psych - Denies anxiety and depression. Respiratory - Denies chronic cough and shortness of breath. Gastrointestinal - Denies nausea, vomiting, and constipation. Has constipation. Hematologic - Denies abnormal bruising and bleeding. Genitourinary - Denies hematuria and urinary frequency. PHYSICAL EXAMINATION General - Alert and Oriented. Her bra size before the implants were 36 B and after the implants were 38 C. HEENT - PERRL. EOMI. Throat is clear. Neck - Supple and nontender. No cervical adenopathy. Lungs - Clear to auscultation. Heart - Regular rate and rhythm. Breasts - Symmetrical. Mild breast ptosis. Has inframammary scars. There is palpable capsular contracture that is tender to palpation bilaterally. Deformity mostly laterally and superiorly. Palpable tender retroareolar masses cluster on the left. About 1.5 cm. Palpable tender retroareolar mass on the right that is slightly lateral to the nipple areolar complex. About one cm. No palpable fluid. No skin retraction. No skin dimpling. No axillary adenopathy. Abdomen - Soft and nondistended. Extremities - FROM. No axillary adenopathy. Radial pulses are palpable. Neuro - CN II-XII grossly intact. Psych - Normal mood and affect. ASSESSMENT 1. Bilateral breast pain. 2. 1.5 cm painful left breast masses cluster in retroareolar area. 3. 1 cm painful right breast mass in retroareolar area. 4. Painful capsular contracture bilateral breast implants. 5. History of bilateral saline textured implants. 6. Family history of breast cancer. 7. Former smoker. PLAN Patient had a mammogram in June,. Will obtain that report. Patient has worsening painful symptomatology in her breasts. There is no clinical evidence of PA-ALCL. She is concerned about PA-ALCL. I discussed this with the patient. It has been seen in textured implants which she has. It is not a breast cancer. 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 The treatment is removal of the textured implants with a capsulectomy. Occasionally an aggressive form is encountered which would need adjuvant chemotherapy. So from a medical standpoint, because she has textured implants along with worsening painful symptomatology, it is recommended to the patient to have these textured implants removed along with a capsulectomy. And removing the implants should be considered reconstructive in nature. Patient understands that she may be financially responsible for the surgery if insurance payment is denied. She voices understanding and wishes to proceed. She just wants the implants out so she can start to feel better. It was also discussed with the patient that after removal of the implants, she may still have painful symptomatology. She is aware of that possibility and wishes to proceed. She would have drains in for several days and be maintained on antibiotics until the drains are removed. Tissue that is removed at the time of surgery will be sent to Pathology for analysis to rule out carcinoma and to Microbiology for culture. A positive culture would necessitate antibiotic therapy. Will then allow the breasts to heal. In about 9-12 months, will then evaluate the breasts for evidence of asymmetry, contour irregularities and deformities. Would then discuss any additional revision reconstruction at that time. The patient is not interested in replacement cohesive gel implants at this time. If she decides in the future that she wants implants again, that surgery would not be covered by her insurance plan, and she would be financially responsible. She voices understanding and wishes to proceed. Patient was informed of the risks and complications of the procedure including alternatives to surgery. These were discussed with the patient personally. Patient voices understanding and wishes to proceed. Some of the risks and complications were included in a form from the [employer] [employer]. Surgery would be done under general anesthesia with a surgical observation overnight stay in the hospital.
[2018-11-11] VITALS (10 sets, daily range): BP systolic 105–129; BP diastolic 73–88; PULSE 65–94; RESP 16–18; TEMP 36.5–36.9; O2SAT 96–100; BMI 32.3
[2018-11-11] MEDS: Cefazolin 2 GM in 0.9% Normal Saline 100 ML IV (07:30)
--- NOTE | 2018-11-11 07:30 | BRBX_PTH ---
PATIENT: LATHA ANGELA LOC: MS3 U#:[id number] AGE/SX: 38/F ROOM: [facility] [place]11/11/[address]: Dr. Juan Qureshi MD : 1980 BED: 1 DIS: 11/13/2018 SPEC #: [id number] RECD: 11/11/18 13:48 STATUS: VINOD RELisa #: [id number] [place]: 11/11/18 07:[address]: Juan Qureshi DEPT: SURGICAL PATHOLOGY RECD BY: Arabella Salmon ENTERED: 11/11/18 14:14 SP TYPE: BREAST BX OTHR DR: Dr. Roberto Pérez MD Tissues: A - Left breast, NOS B - Left breast, NOS C - Right breast, NOS D - Right breast, NOS E - FOREIGN BODY F - FOREIGN BODY Procedures: Surgery Specimen Level I Surgery Specimen Level IV HEADER OPERATION: Excision painful retroareolar lesions bilateral breasts PRE-OP DIAGNOSIS: Bilateral breast pain; 1.5 cm painful left breast mass cluster in retroareolar area; 1?cm painful right breast mass in retroareolar area; painful capsular contracture bilateral breast implants TISSUE SUBMITTED: A - Left breast capsule, B - Left breast mass, C - Right breast capsule, D - Right breast mass, E - Right breast implant - gross only, F - Left breast implant - gross only MICROSCOPIC DIAGNOSIS A. Left breast capsule: Fragments of skeletal muscle tissue, fibroadipose tissue, fibroconnective tissue with reactive changes, clinically breast capsule. B. Left breast mass, biopsy: Fibroadenoma. Negative for atypia or malignancy. C. Right breast capsule: Fragments of skeletal muscle tissue, fibroadipose tissue, fibroconnective tissue with reactive changes, clinically breast capsule. D. Right breast mass, biopsy: Fibroadenoma with fibrocystic changes and intraductal hyperplasia without atypia. Additional fragments of breast tissue with focal fibrocystic changes and intraductal hyperplasia without atypia. Negative for malignancy. E. Right breast implant: Breast implant (gross only). F. Left breast implant: Breast implant (gross only). SJ:dae 11/13/18 MICROSCOPIC DESCRIPTION Slides are reviewed. GROSS DESCRIPTION A - Received in fixative is one container labeled with the patient's name and designated left breast capsule. The specimen consists of multiple irregular fragments of yellow-kirkland soft tissue that in aggregate measure 11 x 8 x 2.5 cm. Serial sections do not reveal mass lesions. Cardiologist sections are submitted in three cassettes. B - Received in fixative is one container labeled with the patient's name and designated left breast mass. The specimen consists of one ovoid fragment of rubbery, white tissue measuring 1.5 x 1.2 x 0.9 cm. This nodule is serially sectioned and totally submitted in cassette #1. Also present in the specimen container is an irregular fragment of yellow, fatty tissue measuring 3 x 2.5 x 0.2 cm. This fibrofatty tissue is submitted in its entirety in cassette #2. C - Received in fixative is one container labeled with the patient's name and designated right breast capsule. The specimen consists of multiple irregular fragments of yellow-kirkland soft tissue that in aggregate measure 11 x 9 x 1.5 cm. Serial sections do not reveal mass lesions. Cardiologist sections are submitted in three cassettes. D - Received in fixative is one container labeled with the patient's name and designated right breast mass. The specimen consists of multiple irregular fragments of kirkland-yellow fibrofatty tissue that in aggregate measure 5.5 x 5 x 1 cm. Serial sections reveal nodular white cut surfaces that are somewhat lobulated in appearance. Cardiologist sections are submitted in two cassettes. E - Received in fixative is one container labeled with the patient's name and designated right breast implant. The specimen consists of a smooth, glistening ovoid implant measuring 13.5 cm in diameter and approximately 4 cm in thickness. No breaks or tears are identified. The device bears the following inscription MoPowered style 168, 390 cc, lot #[id number]. This is for gross diagnosis only. F - Received in fixative is one container labeled with the patient's name and designated left breast implant. The specimen consists of a smooth, glistening ovoid implant measuring 13.5 cm in diameter and approximately 4 cm in thickness. No breaks or tears are identified. The device bears the following inscription MoPowered style 163, 390 cc, lot #[id number]. This is for gross diagnosis only. / AM:dae 11/12/18 TC:1 CPT: 81061 x4, 87715 x2
--- NOTE | 2018-11-11 11:10 | OP.PCM_ITS ---
Report of Operation Date of Procedure: 11/11/18 Pre-Operative Diagnosis: 1. Bilateral breast pain. 2. 1.5 cm painful left breast masses cluster in retroareolar area. 3. 1 cm painful right breast mass in retroareolar area. 4. Painful capsular contracture bilateral breast implants. 5. History of bilateral textured saline implants. 6. Family history of breast cancer. 7. Former smoker. Post-Operative Diagnosis: Same. Surgery/Procedure Performed:: 1. Excision painful left breast mass x2 cluster in retroareolar area. 2. Excision painful right breast mass in retroareolar area. 3. Left breast capsulectomy with removal of textured saline implant. 4. Right breast capsulectomy with removal of textured saline implant. Description of Surgical Findings:: 38 year old woman presents with bilateral breast pain that has worsened over the past year. She initially had saline textured implants placed under the muscle in 2001, (McGhan 168, 350 ml). She has had pain intermittently in her breasts since they have been put in. A year later, she developed cysts on her implants near the implant valve and the implants were removed and new ones re-implanted. She felt better for a while but the symptoms returned a year ago after a ch olecystectomy and partial hysterectomy. The cysts returned in the retroareolar area bilaterally and they were biopsied and found to be negative according to the patient. She has also had flu-like symptoms in the past and intermittent swollen lymph nodes. She has intermittent night sweats. She had tried Physical Therapy in the past without much improvement in the painful symptomatology. 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 She denies lupus, rheumatoid arthritis, and fibromyalgia). She had a mammogram done in June, which was normal according to the patient. Patient was informed of the risks and complications of the procedure including alternatives to surgery. These were discussed with the patient personally. Patient voices understanding and wishes to proceed. Some of the risks and complications were included in a form from the [place]. IV Fluids - 2000 ml. Urine Output - 700 ml. I used Mina absorbable hemostat, (I used 4 vials, 2 in each breast). Reference Number - [id number]. Lot Number - [id number]. Expiration - June 26, 2023 (3 vials, 2 in right breast and one in left breast). Reference Number - [id number]. Lot Number - [id number]. Expiration - March 26, 2023 (left breast). I used Irrisept 0.05% Chlorhexidine. Reference Number - [id number]. Lot Number - [id number]. Expiration - June 26, 2020. GTIN - [id number]. senior interior designer: Sonia Urrutia. Type of Anesthesia:: General Specimen's removed: 1. Left breast mass to Pathology. 2. Left breast capsule to Pathology and Microbiology. 3. Left breast textured saline implant to Pathology (gross). 4. Right breast mass to Pathology. 5. Right breast capsule to Pathology and Microbiology. 6. Right breast textured saline implant to Pathology (gross). Drains: Orlando x2 (one in each breast). Estimated Blood Loss (mL): 50 ml. Fluids Replaced: 2700 ml (IV Fluids 2000 ml, Urine Output 700 ml). Description of Procedure: Patient was taken to OR in supine position and was placed under general anesthesia. The breasts were prepped and draped in the usual fashion. SCD's were placed for DVT prophylaxis. Perioperative antibiotics were given intravenously. A meza catheter was placed. Using xylocaine with epinephrine, the previous horizontal breast incisions were infiltrated. I also jonathan reynoso around the nipple areolar complexes where the soft tissue masses were palpable. Thes markings were also infiltrated. After waiting 5 minutes for the anesthetic to take effect, incisions were made in the previous horizontal breast incisions in the inframammary area. I first worked on the right breast. After dissecting through the subcutaneous tissue, the breast capsule was seen. A capsulotomy was performed and the implant was removed. It was intact. No pus was seen. No abnormal drainage was noted. A capsulectomy was then performed as I excised the capsule off the pectoralis muscle as well as the chest wall. The implant was placed under the muscle. The capsular tissue was thickened and was sent to Pathology for analysis to rule out carcinoma. Some of the tissue was sent to Microbiology for culture. A positive culture will necessitate antibiotic therapy. I made a periareolar incision superiorly and dissected down to the fibrous mass. It was well encapsulated. Clinically it looked like a benign fibroadenoma. The mass was sent separately to Pathology for analysis to rule out carcinoma. The wounds were irrigated with saline. Hemostasis was obtained with electrocautery. A size 15 Orlando drain was placed into the breast pocket through a separate stab incision laterally. It was secured to the skin with 3-0 Nylon suture. I sprayed the breast wound with Irrisept chlorhexidine solution. To further minimize seroma formation, I sprayed Mina absorbable hemostat into the breast pocket and periareolar breast wound. I used 2 vials. The wounds were then closed in a layered fashion with 3-0 Monocryl figure of eight interrupted sutures for the deep subcutaneous tissue. The deep dermis and subcutaneous tissue was approximated with 3-0 Monocryl interrupted sutures. The skin was approximated with 3-0 V lock unidirectional barbed running subcuticular suture for the horizontal incision. For the periareolar incision, the skin was approximated with 4-0 Prolene simple interrupted and vertical mattress interrupted sutures. This was followed by Histoacryl skin tissue adhesive. I then went to the left breast. An incision was made in the previous horizontal breast incision in the inframammary area. After dissecting through the subcutaneous tissue, the breast capsule was seen. A capsulotomy was performed and the implant was removed. It was intact. No pus was seen. No abnormal drainage was noted. A capsulectomy was then performed as I excised the capsule off the pectoralis muscle as well as the chest wall. The implant was placed under the muscle. The capsular tissue was thickened and was sent to Pathology for analysis to rule out carcinoma. Some of the tissue was sent to Microbiology for culture. A positive culture will necessitate antibiotic therapy. I made periareolar incisions superiorly and inferiorly and dissected down to the fibrous masses cluster. It was well encapsulated. Clinically it looked like a benign fibroadenoma. The masses were sent separately to Pathology for analysis to rule out carcinoma. The wounds were irrigated with saline. Hemostasis was obtained with electrocautery. A size 15 Orlando drain was placed into the breast pocket through a separate stab incision laterally. It was secur ed to the skin with 3-0 Nylon suture. I sprayed the breast wound with Irrisept chlorhexidine solution. To further minimize seroma formation, I sprayed Mina absorbable hemostat into the breast pocket and periareolar wounds. I used 2 vials. The wounds were then closed in a layered fashion with 3-0 Monocryl figure of eight interrupted sutures for the deep subcutaneous tissue. The deep dermis and subcutaneous tissue was approximated with 3-0 Monocryl interrupted sutures. The skin was approximated with 3-0 V lock unidirectional barbed running subcuticular suture for the horizontal incision. For the periareolar incisions, the skin was approximated with 4-0 Prolene simple interrupted and vertical mattress interrupted sutures. This was followed by Histoacryl skin tissue adhesive. Her breasts were dressed with Kerlix gauze followed by an TARA wrap for compression to minimize seroma formation. Patient tolerated the procedure well and was sent to PACU in satisfactory condition. Patient will be sent upstairs for continued postop care. She will keep her head elevated during the initial postop period. She will have the drains removed in 10-14 days and be maintained on antibiotics until the drains are removed. She will also be on a lifting restriction. Grafts/Implants Used: None. - Complications None. - Admit VTE Documentation VTE Present on Admission: No VTE Mechan Device Prophylaxis: SCD's VTE Pharm Prophylaxis ordered?: Yes Code Visit Surgery Charges CPT - 40414 ICD-10 - N64.4, N63.10, T85.44xS, Z98.82, Z80.3 N64.4, N63.20, T85.44xS, Z98.82, Z80.3 N64.4, T85.44xS, Z98.82, Z80.3, N63.10 N64.4, T85.44xS, Z98.82, Z80.3, N63.20
[2018-11-11] MEDS: HYDROmorphone 1 MG/ML Syringe IV ×4 (13:41→22:55)
[2018-11-11] MEDS: Lactated Ringers 1,000 ML 60 ML IV (13:41)
[2018-11-11] MEDS: Ondansetron 4 MG/2 ML Vial IV (13:41)
[2018-11-11] MEDS: Cefazolin 1 GM/50 ML BAG IV ×2 (15:46→22:35)
[2018-11-11] MEDS: oxyCODONE 5 MG Tablet 10 MG PO ×2 (15:51→21:50)
[2018-11-11] MEDS: Docusate Sodium 100 MG Capsule PO (21:54)
[2018-11-12 01:25] VITALS: BP 107/68; PULSE 79; RESP 18; TEMP 36.6; O2SAT 97
[2018-11-12] MEDS: HYDROmorphone 1 MG/ML Syringe IV (02:00)
[2018-11-12] MEDS: Lactated Ringers 1,000 ML 60 ML IV ×2 (02:20→22:16)
[2018-11-12] MEDS: oxyCODONE 5 MG Tablet 10 MG PO ×4 (04:09→21:07)
[2018-11-12 05:30] LABS: Mean Corp Hgb Conc 32.4 g/dL (32-36); Mean Corpuscular Hgb 28.8 pg (27.0-32.0); Mean Platelet Vol. 10.4 fl (6.2-12.0); Platelet Count 310 K/mm3 (150-450); RBC Distribution Width CV 13.1 % (11.6-14.6); RBC Distribution Width SD 42.5 fl (35.1-43.9); Red Blood Count 3.82 M/mm3 (4.2-5.4); White Blood Count 14.1 K/mm3 (4.4-11.0)
[2018-11-12 05:55] LABS: Anion Gap 6 (5-15); BUN 8 mg/dL (7-18); BUN/Creat Ratio 10.6 RATIO (10-20); Calcium,Total 8.2 mg/dL (8.5-10.1); Chloride 105 mmol/L (98-107); Creatinine, Serum 0.75 mg/dL (0.55-1.02); EST Glomerular Filtration Rate 92 mL/min (>60); Est Glom Filt Rate - Afr Amer 111 mL/min (>60); Estimated Creatinine Clearance 78.25 ml/min; Glucose 153 mg/dL (74-106); Potassium 3.8 mmol/L (3.5-5.1); Prealbumin 16.5 mg/dL (20.0-40.0); Sodium Level 142 mmol/L (136-145)
[2018-11-12] MEDS: Cefazolin 1 GM/50 ML BAG IV ×3 (06:07→22:16)
[2018-11-12] MEDS: Enoxaparin 40 MG/0.4 ML Syringe SC (06:11)
--- NOTE | 2018-11-12 06:19 | NURSING ---
Esposito catheter DC'd this morning, pt tolerated well.
[2018-11-12] MEDS: ALPRAZolam 0.5 MG Tablet 1 MG PO ×2 (06:27→16:32)
[2018-11-12] MEDS: Famotidine 20 MG Tablet PO (09:35)
[2018-11-12] MEDS: Docusate Sodium 100 MG Capsule PO ×2 (09:35→21:06)
[2018-11-12 10:00] VITALS: BP 100/51; PULSE 79; RESP 16; TEMP 36.8; O2SAT 98
[2018-11-12 15:20] VITALS: BP 99/62; PULSE 82; RESP 18; TEMP 37.2; O2SAT 100
--- NOTE | 2018-11-12 17:36 | PCM.PN.SRG ---
Subjective: Postop #1 Patient complains of incisional pain. Has some unsteadiness on her feet with ambulation. - Physical Exam General: Alert, Oriented x3 HEENT: PERRLA, EOMI Oral: Moist Mucosa Neck: Supple Abdomen: Soft, Non-Distended Skin: Incision - breast incisions are dry and intact. No clinical evidence of hematoma. Breasts are soft and symmetrical. Small amount of superior pole fullness. Neurological: Cranial nerves II-XII grossly intact Psych/Mental Status: Normal Affect, Appropriate Vital Signs Temp Pulse Resp BP Pulse Ox 98.9 F 82 18 99/62 100 11/12/18 15:20 11/12/18 15:20 11/12/18 15:20 11/12/18 15:20 11/12/18 15:20 Oxygen Flow Rate (L/min) 2 Oxygen Delivery Method Room Air Weight: 172 lb 9.951 oz Body Mass Index (BMI) 32.3 Intake and Output for Last 24 Hours 11/10/18 11/11/18 11/12/18 23:59 23:59 23:59 Intake Total 1550 / 2050 3774 / 3774 Output Total 1830 / 3960 4295 / 4295 Balance -280 / -1910 -521 / -521 Drainage 260 ml yesterday, 370 ml today. Microbiology Past 72 Hours 11/11/18 Unknown Gram Stain - Final Tissue - Breast Wound Culture - Preliminary No growth-Final to follow 11/11/18 11:35 Gram Stain - Final Tissue - Breast Wound Culture - Preliminary No growth-Final to follow Laboratory Tests Past 24 Hrs 11/12/18 11/12/18 05:00 05:00 WBC 14.1 H RBC 3.82 L Hgb 11.0 L Hct 34.0 L MCV 89.0 MCH 28.8 MCHC 32.4 RDW Std Deviation 42.5 RDW Coeff of Manjit 13.1 Plt Count 310 MPV 10.4 Sodium 142 Potassium 3.8 Chloride 105 Carbon Dioxide 31.0 Anion Gap 6 BUN 8 Creatinine 0.75 Estim Creat Clear Calc 78.25 Est GFR (MDRD) Af Amer 111 Est GFR (MDRD) Non-Af 92 BUN/Creatinine Ratio 10.6 Glucose 153 H Calcium 8.2 L Prealbumin 16.5 L Medical Necessity - Tobacco Use Smoking Status: Former smoker Assessment/Plan All Active Problems (Last Updated 10/09/18 @ 14:12 by Magalys Smith) HPV test positive (Acute) Abnormal uterine bleeding (Acute) 1. Bilateral breast pain. 2. 1.5 cm painful left breast masses cluster in retroareolar area. 3. 1 cm painful right breast mass in retroareolar area. 4. Painful capsular contracture bilateral breast implants. 5. History of bilateral textured saline implants. 6. Family history of breast cancer. 7. Former smoker. 8. s/p excision painful left breast mass x2 cluster in retroareolar area and excision painful right breast mass in retroareolar area and left breast capsulectomy with removal of textured saline implant and right breast capsulectomy with removal of textured saline implant. Patient has incisional pain. Still needs intermittent IV analgesia. Operative cultures are negative thus far. Continue antibiotics until the drains are removed. Prealbumin was 16.5. Encourage nutritional supplementation with protein to help the healing process. Will remove the drains in the office after discharge. She is a little unsteady on her feet. Will keep her one more day to wean her to po analgesia and to improve her unsteadiness with ambulation. Continue TARA wrap for compression. Continue lifting restriction.
[2018-11-12 21:09] VITALS: BP 103/62; PULSE 100; RESP 16; TEMP 36.8; O2SAT 100
[2018-11-13] MEDS: ALPRAZolam 0.5 MG Tablet 1 MG PO (00:23)
[2018-11-13] MEDS: proMETHazine 25 MG Tablet PO (03:39)
[2018-11-13 03:40] VITALS: BP 104/63; PULSE 78; RESP 17; TEMP 36.6; O2SAT 98
[2018-11-13] MEDS: Cefazolin 1 GM/50 ML BAG IV ×2 (06:10→14:01)
[2018-11-13] MEDS: Enoxaparin 40 MG/0.4 ML Syringe SC (06:11)
[2018-11-13] MEDS: Famotidine 20 MG Tablet PO (08:58)
[2018-11-13] MEDS: Docusate Sodium 100 MG Capsule PO (08:58)
[2018-11-13 09:40] VITALS: BP 102/61; PULSE 77; RESP 16; TEMP 37; O2SAT 97
--- NOTE | 2018-11-13 12:56 | PCM.PN.SRG ---
Subjective: Postop #2 Patient is resting comfortably. Tolerating po analgesia. She is more steady on her feet with ambulation. - Physical Exam General: Alert, Oriented x3 HEENT: PERRLA, EOMI Oral: Moist Mucosa Neck: Supple Abdomen: Soft, Non-Distended Skin: Incision - breast incisions are dry and intact. No clinical evidence of hematoma. Breasts are soft and symmetrical. Small amount of superior pole fullness. Neurological: Cranial nerves II-XII grossly intact Psych/Mental Status: Normal Affect, Appropriate Vital Signs Temp Pulse Resp BP Pulse Ox 98.6 F 77 16 102/61 97 11/13/18 09:40 11/13/18 09:40 11/13/18 09:40 11/13/18 09:40 11/13/18 09:40 Oxygen Flow Rate (L/min) 2 Oxygen Delivery Method Room Air Weight: 172 lb 9.951 oz Body Mass Index (BMI) 32.3 Intake and Output for Last 24 Hours 11/11/18 11/12/18 11/13/18 23:59 23:59 23:59 Intake Total 1550 / 2050 5344 / 6282 2194 / 2194 Output Total 1830 / 3960 6195 / 7585 5000 / 5000 Balance -280 / -1910 -851 / -1303 -2806 / -2806 Drainage 370 ml yesterday, 300 ml today. Microbiology Past 72 Hours 11/11/18 11:35 Gram Stain - Final Tissue - Breast Wound Culture - Preliminary No growth-Final to follow Anaerobic Culture - Preliminary No growth in 48 hours. 11/11/18 Unknown Gram Stain - Final Tissue - Breast Wound Culture - Preliminary No growth-Final to follow Anaerobic Culture - Preliminary No growth in 48 hours. 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 Bilateral breast pain. 2. 1.5 cm painful left breast masses cluster in retroareolar area. 3. 1 cm painful right breast mass in retroareolar area. 4. Painful capsular contracture bilateral breast implants. 5. History of bilateral textured saline implants. 6. Family history of breast cancer. 7. Former smoker. 8. s/p excision painful left breast mass x2 cluster in retroareolar area and excision painful right breast mass in retroareolar area and left breast capsulectomy with removal of textured saline implant and right breast capsulectomy with removal of textured saline implant. Patient has incisional pain. She is tolerating po analgesia. Operative cultures are negative thus far. Continue antibiotics until the drains are removed. Will send her home on Cefadroxil. Prealbumin was 16.5. Encourage nutritional supplementation with protein to help the healing process. She is more steady on her feet with ambulation. Discharge home today. Continue TARA wrap for compression. Continue lifting restriction. Wrote script for Cefadroxil until the drains are removed (30 tabs). Wrote scripts for Percocet for pain (40 tabs) and for Xanax for spasm (30 tabs). Wrote scripts for Phenergan for nausea (30 tabs) and a refill and for Colace for constipation (60 tabs). Followup office one week. Will remove the drains in the office.
--- NOTE | 2018-11-13 13:37 | DCINST_ITS ---
You will use the following diet at home:: No restrictions Discharge Activity: May not drive while taking narcotic pain medications., May Not Shower - until the drains are removed., - - keep head elevated. no heavy lifting. May shower in (days): 14 - after the drains are removed. May resume sexual activity in: No Restrictions Weight Bearing Status: Weight bearing as tolerated Lifting Restrictions: 20 lbs. Keep extremity elevated above heart level: - - elevate head. Call your doctor if your incision/area has: Continuous Slow Oozing, Sudden Increased Bleeding, Increased Pain/ Swelling, Increased Redness, Foul Smelling Discharge, Swelling at the incision site Call your doctor if you observe: Fever of 101 or Higher, Coldness, Increased Pain, Shortness of breath, Chest pain, Calf discomfort, Uncontrolled pain Suture Line Care: - - dry dressings daily. Change Dressing in (Days):: 1 - dry dressings daily. Cleanse incision/area with: - - may get incisions wet in the shower after the drains are removed. Drain: Suction - josefina drain x2 to bulb suction. empty and record output daily. Allergies/Adverse Reactions: Allergies sucralfate [From Carafate] Allergy (Verified 11/04/18 08:49) Hives acetaminophen [From Tylenol] Adverse Reaction (Verified 11/04/18 08:49) Nausea egg Adverse Reaction (Verified 11/04/18 08:49) Abd cramps/diarrhea Medications to take at Discharge Cholecalciferol (Vitamin D3) [Vitamin D3] 5,000 unit PO DAILY 11/04/18 Lactobacillus Acidophilus [Probiotic] 2 ea PO DAILY 11/04/18 Magnesium 250 mg PO DAILY 11/04/18 Ranitidine HCl [Zantac] 150 mg PO DAILY 11/04/18 Zinc 50 mg PO DAILY 11/04/18 ALPRAZolam [Xanax] 1 mg PO TID PRN PRN #30 tab 11/13/18 Cefadroxil [Duricef] 500 mg PO BID #30 cap 11/13/18 Docusate Sodium [Colace] 100 mg PO BID #60 cap 11/13/18 Oxycodone HCl/Acetaminophen [Percocet 5/325] 1 tab PO Q4H PRN PRN 7 Days #40 tab 11/13/18 proMETHazine tablet [Phenergan tablet] 25 mg PO 4X/DAY PRN PRN #30 tab 11/13/18 The following prescriptions were given: Docusate Sodium [Colace] 100 mg PO BID #60 cap Prescription Printed Cefadroxil [Duricef] 500 mg PO BID #30 cap Prescription Printed Oxycodone HCl/Acetaminophen [Percocet 5/325] 1 tab PO Q4H PRN PRN 7 Days #40 tab PRN Reason: Pain Prescription Printed proMETHazine tablet [Phenergan tablet] 25 mg PO 4X/DAY PRN PRN #30 tab PRN Reason: Nausea/Vomiting Prescription Printed ALPRAZolam [Xanax] 1 mg PO TID PRN PRN #30 tab PRN Reason: Spasms Prescription Printed Primary Care Physician: Roberto Pérez MD [Primary Care Provider] - Test Results: Test results from this visit will be discussed in further detail at your follow- up appointment, if applicable. Please Follow Up With: Juan Qureshi MD When: one week. call [phone] for appt. Proposed Discharge Date: 11/13/18
[2018-11-13 14:48] VITALS: BP 107/72; PULSE 75; RESP 16; TEMP 37.4; O2SAT 97
== END 2018-11-13 15:52 | disposition home or self-care (01) ==
LOC: MS3 12:44
PROVIDERS: Admitting Provider Surgery; Family Provider Family Medicine; PCP Family Medicine; Referring Provider Surgery; Visit Provider Surgery
PROC: (CPT 19371; principal; 2018-11-11 07:15)
DX: D24.2 Benign neoplasm of left breast (principal); D24.1 Benign neoplasm of right breast; T85.44XA Capsular contracture of breast implant, initial encounter; F41.9 Anxiety disorder, unspecified; F32.9 Major depressive disorder, single episode, unspecified; N64.4 Mastodynia; Z79.899 Other long term (current) drug therapy; Z87.891 Personal history of nicotine dependence; Z87.42 Personal history of other diseases of the female genital tract; Z85.41 Personal history of malignant neoplasm of cervix uteri; Z80.3 Family history of malignant neoplasm of breast
CPT/HCPCS: 19120; 19371; 36415; 80048; 84134; 85027; 87070; 87075; 87077; 87102; 87176; 87205; 87206; 88300; 88305; 96365; 96366; 96375; 96376; 99218; J7120; G0378; G0379; J2405

== ENCOUNTER 2018-12-08 10:31 | Emergency (ER) | payer BC, SELFPAY ==
[2018-12-04 17:25] VITALS: BMI 32.3
[2018-12-08 10:32] VITALS: BP 119/84; PULSE 88; RESP 18; TEMP 36.6; O2SAT 98; BMI 34.9
--- NOTE | 2018-12-08 10:41 | CT_ITS ---
STUDY: CT ABDOMEN AND PELVIS WITH CONTRAST REASON FOR EXAM: Female, 38 years old. Intermittent abdominal pain with nausea. RADIATION DOSAGE (If Supplied By Facility): CTDIvol = ( 13.94 ) mGy, DLP = ( 922.56 ) mGycm TECHNIQUE: Transaxial images were obtained from the dome of the diaphragm to the symphysis pubis without oral contrast. 100mL IV Isovue 300 was administered. Sagittal and coronal images were reconstructed. Individualized dose optimization techniques were used for this CT. COMPARISON: Comparison is made with prior study dated August 25, 2018. FINDINGS: The visualized lung bases are unremarkable. The visualized portions of the heart are within normal limits. The previously seen bilateral breast prosthesis have been removed. Normal liver. There are surgical clips in the gallbladder fossa consistent with a prior cholecystectomy. Normal spleen. Normal pancreas. Stable 2.1 cm x 2.8 cm hypodense nodule in the left adrenal gland. This most likely represents an adenoma or myolipoma. Normal right kidney. Normal left kidney. There is a small hiatal hernia. Normal small intestine. Normal colon. There is non-visualization of the appendix. Normal abdominal aorta. Normal inferior vena cava. There is borderline retroperitoneal lymphadenopathy with enlarged nodes no greater than 10mm in the short axis diameter. Normal urinary bladder. There is absence of the uterus consistent with a prior hysterectomy.. There is a 1.5 cm follicle in the left ovary. Normal abdominal wall. Surgical clips are once again seen in the anterior mid abdomen Normal osseous structures. CT/Abdomen/Pelvis W IV Cont ONLY IMPRESSION: Stable hypodense nodule in the left adrenal gland. Status post hysterectomy. Electronically Signed: Bruce Hudson, at 12:31 EDT , Service support ,
--- NOTE | 2018-12-08 10:43 | ED.VIS.GEN ---
History of Present Illness Chief Complaint: Abd Pain Informant: Patient Onset: Today Context: Sudden Onset Timing: Intermittent Current Severity: Moderate Maximum Severity: Severe Narrative: The patient presents to the emergency department with abdominal pain. The patient does have a complex medical history. She had a partial hysterectomy and scalp pain and oophorectomy this year. She also had gallbladder removal. She states that she recently had her implants removed 3 weeks ago. She is been doing well, but today she began to have a sharp pain in her mid epigastric area that radiated to her back. States will come in waves. She was nauseated but did not vomit. She also began to have some loose watery diarrhea. She does not think she is a fever or chills. She denies any other systemic symptoms. Prior similar symptoms: No Recent Illness/Hospitalization: No Past Medical History - Allergies and Home Meds Allergies/Adverse Reactions: Allergies sucralfate [From Carafate] Allergy (Verified 12/08/18 10:34) Hives acetaminophen [From Tylenol] Adverse Reaction (Verified 12/08/18 10:34) Nausea egg Adverse Reaction (Verified 12/08/18 10:34) Abd cramps/diarrhea Primary Care Physician: Roberto Pérez MD [NON-STAFF] - Prior records reviewed: Yes Surgical History: cholecystectomy, hysterectomy Lives: With Family Smoking Status: Former smoker Alcohol: None Drugs: None Review of Systems General: Denies: Chills, Fever, Sweats Eyes: Denies: Visual changes - bilaterally, Diplopia ENT: Denies: Rhinorrhea, Sore throat Cardiovascular: Denies: Chest pain, Palpitations Respiratory: Denies: Dyspnea, Cough, Dyspnea on exertion Gastrointestinal: Reports: Abdominal pain, Nausea, Diarrhea Genitourinary: Denies: Dysuria, Hematuria, Frequency Musculoskeletal: Denies: Back pain, Extremity Pain Skin: Denies: Rash, Wounds Neurological: Denies: Headache, Weakness, Numbness Physical Exam Vital Signs/Narrative: Vital Signs Temp Pulse Resp BP Pulse Ox 12/08/18 10:32 97.8 F 88 18 119/84 H 98 Inital Vital Signs reviewed: Yes General: Well nourished, Well developed, No Acute Distress Head: Normocephalic, Atraumatic Eyes: Perrl, EOMI ENT: Moist mucous membranes, No rhinorrhea Neck: Supple, Nontender Cardiovascular: Regular rate, Regular rhythm, No murmurs Respiratory: No distress, CTA bilaterally, Chest nontender Abdomen: Soft, Nondistended, Normal bowel sounds, Tender. Negative for: Guarding, Rebound tenderness, Hyperactive bowel sounds, Ventral hernia, Inguinal hernia Back: Nontender, Normal Inspection Extremities: Nontender, No edema Skin: Normal color, No rash Neurological: Alert, Oriented x3, Cranial nerves II-XII grossly intact, Normal Strength, Normal Sensation Psychological: Normal affect, Normal Mood Diagnostic/Tx/Re-eval Clinical Impression(s) from Imaging Studies Abdomen/Pelvis CT 12/08/18 10:41 IMPRESSION: Stable hypodense nodule in the left adrenal gland. Status post hysterectomy. Electronically Signed: Bruce Tristan, at 12:31 EDT , Service support , Abnormal Lab Results 12/08/18 12/08/18 12/08/18 10:49 10:49 11:40 WBC 7.0 RBC 4.57 Hgb 12.8 Hct 40.1 MCV 87.7 MCH 28.0 MCHC 31.9 L RDW Std Deviation 42.1 RDW Coeff of Manjit 13.1 Plt Count 353 MPV 9.6 Immature Gran % (Auto) 0.400 Neut % (Auto) 50.0 Lymph % (Auto) 28.7 [place] % (Auto) 9.6 Eos % (Auto) 10.0 H Baso % (Auto) 1.3 H Absolute Neuts (auto) 3.5 Absolute Lymphs (auto) 2.00 Nucleated RBC % 0 Sodium 141 Potassium 3.9 Chloride 107 Carbon Dioxide 28.0 Anion Gap 6 BUN 10 Creatinine 0.65 Estim Creat Clear Calc 90.29 Est GFR (MDRD) Af Amer 133 Est GFR (MDRD) Non-Af 110 BUN/Creatinine Ratio 15.4 Glucose 86 Calcium 8.7 Total Bilirubin 0.50 AST 16 ALT 30 Alkaline Phosphatase 70 Total Protein 6.9 Albumin 3.6 Globulin 3.3 Albumin/Globulin Ratio 1.1 Lipase 116 Urine Color Yellow Urine Clarity Sl. Cloudy Urine pH 7.0 Ur Specific [place] 1.005 Urine Protein Negative Urine Glucose (UA) Normal Urine Ketones Negative Urine Occult Blood Negative Urine Nitrite Negative Urine Bilirubin Negative Urine Urobilinogen Normal Ur Leukocyte Esterase Negative Urine RBC 0 SEEN Urine WBC 0 SEEN Ur Squamous Epith Cells 0-5 SEEN Urine Bacteria 0 SEEN Urine Mucus 0 SEEN - Medical Decision Making The patient presents with abdominal cramping and nausea. She also had loose watery diarrhea today. She is afebrile. I really cannot re-create any pain on examination. IV was established. The patient was given fluids, analgesics, antiemetics. She is resting more comfortably. Screening labs were obtained were unremarkable. CT does not show any definitive abnormality within the abdomen. My suspicion is that this may be an early gastroenteritis especially given the patient's cramping, nausea, diarrhea. I am going to treat her symptomatically. I do not suspect a dangerous process, but did extension course counselor the patient that if her symptoms are worsening or not improving over the next 24 hours to return. She is comfortable with this plan of care. Impression 1. Gastroenteritis 2. Epigastric abdominal pain ED Disposition - Plan for ED Patient: Instructions: GASTROENTERITIS, Viral (8y-Adult) Prescriptions: Dicyclomine HCl [Bentyl] 20 mg PO TIDAC #20 cap Prescription Printed Ondansetron [Zofran Odt] 4 mg PO Q8H PRN PRN #10 tab PRN Reason: Nausea Prescription Printed Referrals: Roberto Pérez MD [NON-STAFF] -
[2018-12-08] MEDS: 0.9% Normal Saline 1,000 ML 1000 ML IV (10:57)
[2018-12-08] MEDS: Morphine 4 MG/ML Syringe IV (10:57)
[2018-12-08] MEDS: Ondansetron 4 MG/2 ML Vial IV (10:57)
[2018-12-08 10:59] LABS: Absolute Neutrophil Count 3.5 X10^3/uL (2.0-7.7); Basophil# 0.09 X10^3/uL; Basophil% 1.3 % (0-1); Hematocrit 40.1 % (37-47); Hemoglobin 12.8 g/dL (12.0-15.0); Lymphocyte % 28.7 % (19-41); Mean Corp Hgb Conc 31.9 g/dL (32-36); Mean Corpuscular Volume 87.7 fL (81-99); Mean Platelet Vol. 9.6 fl (6.2-12.0); Monocyte# 0.67 X10^3/uL; Monocyte% 9.6 % (0-10); NRBC Flagged by Analyzer 0 % (0-5); Neutrophil # 3.49 X10^3/uL (2.7-7.7); Platelet Count 353 K/mm3 (150-450); RBC Distribution Width CV 13.1 % (11.6-14.6); RBC Distribution Width SD 42.1 fl (35.1-43.9); Red Blood Count 4.57 M/mm3 (4.2-5.4)
[2018-12-08 11:14] LABS: ALB/GLOB Ratio 1.1 RATIO (0.9-2.4); AST(SGOT) 16 U/L (15-37); Alanine Aminotransfer ALT/SGPT 30 U/L (13-56); Albumin, Serum 3.6 g/dL (3.2-5.0); Alkaline Phosphatase 70 U/L (45-117); Anion Gap 6 (5-15); BUN 10 mg/dL (7-18); BUN/Creat Ratio 15.4 RATIO (10-20); Calcium,Total 8.7 mg/dL (8.5-10.1); Chloride 107 mmol/L (98-107); Creatinine, Serum 0.65 mg/dL (0.55-1.02); EST Glomerular Filtration Rate 110 mL/min (>60); Est Glom Filt Rate - Afr Amer 133 mL/min (>60); Estimated Creatinine Clearance 90.29 ml/min; Globulin 3.3 g/dL (2.2-4.2); Glucose 86 mg/dL (74-106); Lipase 116 U/L (73-393); Potassium 3.9 mmol/L (3.5-5.1); Protein, Total 6.9 g/dL (6.4-8.2); Sodium Level 141 mmol/L (136-145)
[2018-12-08 11:17] VITALS: RESP 18
[2018-12-08 11:46] LABS: Bacteria 0 SEEN /hpf (None Seen); Mucous, Urine 0 SEEN /hpf (<or=2+); Red Blood Cells-Urine 0 SEEN /hpf (0-5); White Blood Cells 0 SEEN /hpf (0-5)
[2018-12-08 11:50] LABS: Color, Urine Yellow (Yellow); Glucose, Dipstick Normal (Normal); Ketone-Dipstick Negative (Negative); Leukocyte Esterase-Dipstick Negative /ul (Negative); Nitrite-Dipstick Negative (Negative); Occult Blood-Urine Negative /ul (Negative); Protein-Dipstick Negative (Negative); Specific Gravity, Urine 1.005 (1.002-1.030); Urine Bilirubin Dipstick Negative (Negative); Urine Clarity Sl. Cloudy (Clear); Urine Urobilinogen Normal (Normal)
[2018-12-08 11:57] LABS: Squamous Epithelial Cells - UA 0-5 SEEN /hpf (5-10)
[2018-12-08 12:55] VITALS: RESP 18
== END 2018-12-08 13:01 | disposition home or self-care (01) ==
PROVIDERS: Emergency Provider Emergency Medicine; Family Provider Family Medicine; PCP Family Medicine
DX: K52.9 Noninfective gastroenteritis and colitis, unspecified (principal); R10.13 Epigastric pain; Z90.710 Acquired absence of both cervix and uterus; Z90.49 Acquired absence of other specified parts of digestive tract; Z87.891 Personal history of nicotine dependence; Z88.6 Allergy status to analgesic agent
CPT/HCPCS: 74177; 80053; 81001; 83690; 85025; 96361; 96374; 96375; 99283; J7030; Q9967; A4216; J2405

== ENCOUNTER 2019-09-27 11:27 | Emergency (ER) | payer BC, SELFPAY ==
[2019-01-05 15:02] VITALS: BMI 34.9
[2019-09-27 11:28] VITALS: BP 122/65; PULSE 79; RESP 16; TEMP 36.6; O2SAT 98; BMI 30.7
--- NOTE | 2019-09-27 12:04 | CT_ITS ---
STUDY: CT ABDOMEN AND PELVIS WITHOUT CONTRAST REASON FOR EXAM: Female, 39 years old. Epigastric pain today, nausea. Prior cholecystectomy, hysterectomy. RADIATION DOSAGE (If Supplied By Facility): CTDIvol = ( 16.96 ) mGy, DLP = ( 862.27 ) mGycm TECHNIQUE: Transaxial images were obtained from the dome of the diaphragm to the symphysis pubis without oral contrast, and without intravenous contrast. Sagittal and coronal images were reconstructed. Individualized dose optimization techniques were used for this CT. COMPARISON: 08/25/2018, 12/08/2018. FINDINGS: The visualized lung bases are unremarkable. The visualized portions of the heart are within normal limits. There is decreased attenuation of the liver consistent with steatosis. There is hepatomegaly. There are surgical clips in the gallbladder fossa consistent with a prior cholecystectomy. Normal spleen. Normal pancreas. Normal right adrenal gland. Stable 2.9 cm mass of the left adrenal gland. Normal right kidney stable small cyst in the lower pole. Normal left kidney. Evaluation of the GI tract is limited by absence of oral contrast. Cannot exclude stomach wall thickening. No dilated loops of bowel or evidence for obstruction. Cannot exclude segmental thickening of the arguelles of the small or large bowel. Cannot exclude enteritis or colitis. Moderate diffuse fecal retention. Appendix has been removed. Normal abdominal aorta. Normal inferior vena cava. Normal retroperitoneum. Normal urinary bladder. There is absence of the uterus consistent with a prior hysterectomy. Normal abdominal wall. Normal osseous structures. CT/Abdomen/Pelvis W IV Cont ONLY IMPRESSION: No definite acute or significant abnormality seen, no change. Electronically Signed: Jeronimo Lara MD at 14:03 EDT , Service support ,
[2019-09-27 12:24] LABS: Absolute Lymphocyte Count 2.25 X10^3/uL (0.83-4.51); Absolute Neutrophil Count 5.2 X10^3/uL (2.0-7.7); Basophil# 0.06 X10^3/uL; Basophil% 0.7 % (0-1); Eosinophil# 0.35 X10^3/uL; Eosinophils% 4.1 % (0-5); Hematocrit 38.8 % (37-47); Hemoglobin 12.6 g/dL (12.0-15.0); Lymphocyte # 2.25 X10^3/ul (4.0); Lymphocyte % 26.2 % (19-41); Mean Corp Hgb Conc 32.5 g/dL (32-36); Mean Corpuscular Hgb 29.4 pg (27.0-32.0); Mean Corpuscular Volume 90.7 fL (81-99); Monocyte# 0.76 X10^3/uL; Monocyte% 8.8 % (0-10); NRBC Flagged by Analyzer 0 % (0-5); Neutrophil # 5.15 X10^3/uL (2.7-7.7); Neutrophil % 59.9 % (47-70); Platelet Count 352 K/mm3 (150-450); RBC Distribution Width CV 12.4 % (11.6-14.6); RBC Distribution Width SD 40.2 fl (35.1-43.9); Red Blood Count 4.28 M/mm3 (4.2-5.4); White Blood Count 8.6 K/mm3 (4.4-11.0)
[2019-09-27] MEDS: Morphine 4 MG/ML Syringe IV (12:26)
[2019-09-27] MEDS: Ondansetron 4 MG/2 ML Vial IV (12:26)
[2019-09-27] MEDS: 0.9% Normal Saline 1,000 ML 1000 ML IV (12:29)
[2019-09-27] MEDS: Mag Hydrox/Al Hydrox/Simeth 30 ML UDC PO (13:20)
[2019-09-27 13:27] LABS: AST(SGOT) 21 U/L (15-37); Alanine Aminotransfer ALT/SGPT 19 U/L (13-56); Albumin, Serum 3.3 g/dL (3.2-5.0); Alkaline Phosphatase 55 U/L (45-117); Anion Gap 4 (5-15); BUN 12 mg/dL (7-18); BUN/Creat Ratio 17.2 RATIO (10-20); Calcium,Total 8.4 mg/dL (8.5-10.1); Chloride 110 mmol/L (98-107); EST Glomerular Filtration Rate 101 mL/min (>60); Est Glom Filt Rate - Afr Amer 122 mL/min (>60); Estimated Creatinine Clearance 87.03 ml/min; Globulin 3.4 g/dL (2.2-4.2); Glucose 99 mg/dL (74-106); Lipase 145 U/L (73-393); Potassium 4.2 mmol/L (3.5-5.1); Protein, Total 6.7 g/dL (6.4-8.2); Sodium Level 141 mmol/L (136-145)
--- NOTE | 2019-09-27 14:40 | ED.VIS.GI ---
History of Present Illness Chief Complaint: Abd Pain Narrative: Patient presenting for evaluation secondary to abdominal pain. Patient reports that she woke up this morning and had a sudden onset of epigastric abdominal pain. She reports that this is a continuous type pain with no exacerbating relieving factors. Has been associated with some mild nausea and vomiting, but no diarrhea. No constipation. No inability to pass flatus. Patient does report that she has had a couple of abdominal surgeries including a partial hysterectomy and a cholecystectomy. No prior history of bowel obstructions. Patient denies any new medications recently, no history of pancreatitis or heavy alcohol usage. She does have a history of peptic ulcer in the past this feels somewhat similar with a slightly different location of the pain. Review of systems otherwise negative. Past Medical History - Allergies and Home Meds Allergies/Adverse Reactions: Allergies sucralfate [From Carafate] Allergy (Verified 09/27/19 11:31) Hives acetaminophen [From Tylenol] Adverse Reaction (Verified 09/27/19 11:31) Nausea egg Adverse Reaction (Verified 09/27/19 11:31) Abd cramps/diarrhea Primary Care Physician: Gertrudis Aguero MD [Primary Care Provider] - Prior records reviewed: Yes Past Medical History: None Surgical History: cholecystectomy, hysterectomy Smoking Status: Never smoker Review of Systems General: Denies: Chills, Fever, Sweats Eyes: Denies: Visual changes - bilaterally, Diplopia ENT: Denies: Rhinorrhea, Sore throat Cardiovascular: Denies: Chest pain, Palpitations Respiratory: Denies: Dyspnea, Cough, Dyspnea on exertion Gastrointestinal: Reports: Abdominal pain, Nausea, Vomiting. Denies: Diarrhea, Melena, Hematochezia Genitourinary: Denies: Dysuria, Hematuria, Frequency Musculoskeletal: Denies: Back pain, Extremity Pain Skin: Denies: Rash, Wounds Neurological: Denies: Headache, Weakness, Numbness Physical Exam Vital Signs/Narrative: Vital Signs Temp Pulse Resp BP Pulse Ox 09/27/19 11:28 97.9 F 79 16 122/65 H 98 Inital Vital Signs reviewed: Yes General: Well nourished, Well developed, No Acute Distress Head: Normocephalic, Atraumatic Eyes: Perrl, EOMI ENT: Moist mucous membranes, No rhinorrhea Neck: Supple, Nontender Cardiovascular: Regular rate, Regular rhythm, No murmurs Respiratory: No distress, CTA bilaterally, Chest nontender Abdomen: Soft, Nondistended, Normal bowel sounds, Tender - Gastric Back: Nontender, Normal Inspection Extremities: Nontender, No edema Skin: Normal color, No rash Neurological: Alert, Oriented x3, Cranial nerves II-XII grossly intact, Normal Strength, Normal Sensation Psychological: Normal affect, Normal Mood Diagnostic/Tx/Re-eval - Medical Decision Making Patient presenting secondary to abdominal pain. Patient was given morphine Zofran and a liter of fluids. CBC CMP and lipase found to be unremarkable. Patient continued to have pain she was given GI cocktail. To rule out the possibility for obstruction, CT abdomen and pelvis was performed this was all flow found to be negative. Patient has some symptomatic improvement from a GI cocktail, this likely is an element of peptic ulcer. Patient be discharged with a course of Protonix and Carafate. She will follow-up with primary care. ED Disposition - Plan for ED Patient: Disposition: Home or Assisted Living Diagnosis: Gastritis Instructions: ED Gastritis Prescriptions: Sucralfate [Carafate] 1 gm PO 4X/DAY #120 tab Prescription Printed Pantoprazole Sodium [Protonix] 40 mg PO DAILY #30 tab Prescription Printed Referrals: Gertrudis Aguero MD [Primary Care Provider] - 1 Week
[2019-09-27 15:02] VITALS: BP 119/78; PULSE 78; RESP 16; O2SAT 98
== END 2019-09-27 15:08 | disposition home or self-care (01) ==
PROVIDERS: Emergency Provider Emergency Medicine; PCP Family Medicine
DX: K29.70 Gastritis, unspecified, without bleeding (principal); Z87.11 Personal history of peptic ulcer disease; Z88.6 Allergy status to analgesic agent; Z90.49 Acquired absence of other specified parts of digestive tract; Z90.710 Acquired absence of both cervix and uterus
CPT/HCPCS: 74177; 80053; 83690; 85025; 96361; 96374; 96375; 99284; J7030; Q9967; A4216; J2405

== ENCOUNTER → 2020-05-30 13:26 | Outpatient (CLI) | payer OTHER, SELFPAY ==
[2020-05-30 09:32] VITALS: BMI 32.9
== END ==
PROVIDERS: PCP Family Medicine; Referring Provider Nurse Practitioner Women's Health; Visit Provider Nurse Practitioner Women's Health
DX: N76.0 Acute vaginitis (principal)
CPT/HCPCS: 87070; 87205

== ENCOUNTER → 2020-06-09 09:05 | Outpatient (CLI) | payer OTHER, SELFPAY ==
[2020-05-30 09:32] VITALS: BMI 32.9
[2020-06-09 12:54] LABS: Absolute Lymphocyte Count 2.05 X10^3/uL (0.83-4.51); Absolute Neutrophil Count 4.4 X10^3/uL (2.0-7.7); Basophil# 0.07 X10^3/uL; Basophil% 0.9 % (0-1); Eosinophil# 0.39 X10^3/uL; Eosinophils% 5.2 % (0-5); Hematocrit 42.8 % (37-47); Hemoglobin 13.5 g/dL (12.0-15.0); Lymphocyte # 2.05 X10^3/ul (4.0); Lymphocyte % 27.3 % (19-41); Mean Corp Hgb Conc 31.5 g/dL (32-36); Mean Corpuscular Hgb 28.8 pg (27.0-32.0); Mean Corpuscular Volume 91.3 fL (81-99); Mean Platelet Vol. 10.5 fl (6.2-12.0); Monocyte# 0.55 X10^3/uL; Monocyte% 7.3 % (0-10); NRBC Flagged by Analyzer 0 % (0-5); Neutrophil # 4.44 X10^3/uL (2.7-7.7); Platelet Count 395 K/mm3 (150-450); RBC Distribution Width CV 12.5 % (11.6-14.6); RBC Distribution Width SD 41.6 fl (35.1-43.9); Red Blood Count 4.69 M/mm3 (4.2-5.4); White Blood Count 7.5 K/mm3 (4.4-11.0)
[2020-06-09 13:00] LABS: Free T3 2.5 pg/mL (2.18-3.98); T4 Free Direct 1.04 ng/dL (0.76-1.46); Thyroid Stim Hormone (TSH) 0.42 uIU/mL (0.358-3.74)
== END ==
PROVIDERS: PCP Family Medicine; Visit Provider Family Medicine
DX: E03.9 Hypothyroidism, unspecified (principal); K21.9 Gastro-esophageal reflux disease without esophagitis
CPT/HCPCS: 36415; 84439; 84443; 84481; 85025

== ENCOUNTER → 2020-06-13 15:13 | Outpatient (CLI) | payer OTHER, SELFPAY ==
[2020-05-30 09:32] VITALS: BMI 32.9
--- NOTE | 2020-06-13 15:15 | BI_ITS ---
MAMMOGRAPHY - BILATERAL SCREENING REASON FOR EXAM: Female, 40 years old. Routine annual screening examination. PERTINENT HISTORY: Non-contributory. History of prior bilateral breast implants and removal. TECHNIQUE: Digital bilateral breast radha (3D mammographic acquisition) in the CC and MLO projections. 2-D mediolateral oblique (MLO) and craniocaudad (CC) views of both breasts were obtained. CAD: Full Field Digital Mammography with Computer Added Detection was performed. COMPARISON: Comparison is made with prior outside examination dated 06/11/2018. FINDINGS: Breast Composition: The breasts are heterogeneously dense, which may obscure small masses. There are no dominant masses or suspicious calcifications. The previously seen bilateral breast implants abdomen removed. There is evidence of scarring in the retroareolar region. No other significant abnormalities are identified. BI/SCRN MAMM (CAD)W/RADHA BILAT IMPRESSION: Status post bilateral breast implant removal. Mild scarring in the retroareolar region bilaterally. Yearly follow-up mammogram recommended. (A) ASSESSMENT CATEGORY: BIRADS Category 2: Benign. A letter regarding these results will be sent to the patient by the facility within 30 days. Approximately 10% of breast cancers are not detected by mammography. A normal mammogram should not delay biopsy of a clinically suspicious abnormality. [id number] Electronically Signed: Bruce Hudson MD at 8:05 EST , Service support ,
== END ==
PROVIDERS: PCP Family Medicine; Referring Provider Nurse Practitioner Women's Health; Visit Provider Nurse Practitioner Women's Health
DX: Z12.31 Encounter for screening mammogram for malignant neoplasm of breast (principal)
CPT/HCPCS: 77063; 77067

== ENCOUNTER → 2022-01-22 | Outpatient (CLI) | payer BC, SELFPAY ==
[2022-01-22 15:45] LABS: Follicle Stimulating Hormone 5.4 mIU/mL; T4 Free Direct 0.95 ng/dL (0.76-1.46); Thyroid Stim Hormone (TSH) 0.49 uIU/mL (0.358-3.74)
[2022-01-24 09:27] LABS: Thyroid Peroxidase AB 11 IU/mL (0-34)
== END | disposition home or self-care (01) ==
LOC: PAVLAB 14:49
PROVIDERS: PCP Family Medicine; Referring Provider Nurse Practitioner Women's Health; Visit Provider Nurse Practitioner Women's Health
DX: Z13.29 Encounter for screening for other suspected endocrine disorder (principal); Z80.3 Family history of malignant neoplasm of breast
CPT/HCPCS: 36415; 82670; 83001; 84439; 84443; 86376

== ENCOUNTER → 2022-02-12 | Outpatient (CLI) | payer BC, SELFPAY ==
--- NOTE | 2022-02-12 09:25 | BI_ITS ---
MAMMOGRAPHY - BILATERAL DIAGNOSTIC REASON FOR EXAM: Female, 41 years old. Palpable lump in the upper lateral aspect of the right breast. PERTINENT HISTORY: Non-contributory. History of prior bilateral breast implants and removal. TECHNIQUE: Digital bilateral breast devon (3D mammographic acquisition) in the CC and MLO projections. 2-D mediolateral oblique (MLO) and craniocaudad (CC) views of both breasts were obtained. CAD: Full Field Digital Mammography with Computer Added Detection was performed. COMPARISON: Comparison is made with prior study dated 06/13/2020. FINDINGS: Breast Composition: The breasts are heterogeneously dense, which may obscure small masses. There are no dominant masses or suspicious calcifications. Stable small benign-appearing bilateral axillary lymph nodes. No other significant abnormalities are identified. There has been no significant change since the prior study. BI/DIAG MAMM W/CAD, BILAT IMPRESSION: Stable bilateral diagnostic mammogram. With the patient''s history of a palpable lump in the right breast, correlation with ultrasound is recommended. ASSESSMENT CATEGORY: BIRADS Category 0: Incomplete. Need additional imaging evaluation. A letter regarding these results will be sent to the patient by the facility within 30 days. Approximately 10% of breast cancers are not detected by mammography. A normal mammogram should not delay biopsy of a clinically suspicious abnormality. Electronically Signed: Bruce Hudson MD at 11:06 EDT ,
--- NOTE | 2022-02-12 09:25 | US_ITS ---
STUDY: ULTRASOUND BREAST - RIGHT REASON FOR EXAM: Female, 41 years old. Palpable lump in the right breast. TECHNIQUE: Axial and longitudinal images of the RIGHT breast were performed with a high resolution ultrasound transducer. # OF IMAGES: 25 COMPARISON: Comparison is made with prior mammogram done earlier today. FINDINGS: RIGHT Breast: There is a 3 mm x 4 mm x 3 mm cyst at the 10 o''clock position of the breast at 3 cm from nipple. Dilated retroareolar ducts. US/Breast Limited Unilateral IMPRESSION: Dilated retroareolar ducts. 3 mm x 4 mm x 3 mm cyst at the 10 o''clock position of the breast at 3 cm from nipple. ASSESSMENT CATEGORY: BIRADS Category 2: Benign. A letter regarding these results will be sent to the patient by the facility within 30 days. Electronically Signed: Bruce Hudson MD at 15:27 EDT ,
== END | disposition home or self-care (01) ==
PROVIDERS: PCP Family Medicine; Visit Provider Nurse Practitioner Women's Health
DX: N60.01 Solitary cyst of right breast (principal); R61 Generalized hyperhidrosis; R35.0 Frequency of micturition; Z80.3 Family history of malignant neoplasm of breast
CPT/HCPCS: 76642; 77062; 77066; G0279

== ENCOUNTER → 2023-04-30 | Outpatient (CLI) | payer BC, SELFPAY | END | disposition home or self-care (01) | LOC: LABSPEC 09:58 | PROVIDERS: PCP Nurse Practitioner Family; Visit Provider Nurse Practitioner Family | DX: N39.0 Urinary tract infection, site not specified (principal) | CPT/HCPCS: 87086 ==

== ENCOUNTER → 2023-05-13 | Outpatient (CLI) | payer BC, SELFPAY ==
--- NOTE | 2023-05-13 12:41 | BI_ITS ---
MAMMOGRAPHY - BILATERAL SCREENING REASON FOR EXAM: Female, 43 years old. Routine annual screening examination. PERTINENT HISTORY: Non-contributory. Bilateral breast implants and removal. TECHNIQUE: Digital bilateral breast radha (3D mammographic acquisition) in the CC and MLO projections. 2-D mediolateral oblique (MLO) and craniocaudad (CC) views of both breasts were obtained. CAD: Full Field Digital Mammography with Computer Added Detection was performed. COMPARISON: Comparison is made with prior study dated February 12, 2022 and June 13, 2020. FINDINGS: Breast Composition: The breasts are heterogeneously dense, which may obscure small masses. There are no dominant masses or suspicious calcifications. No other significant abnormalities are identified. There has been no significant change since the prior study. BI/SCRN MAMM (CAD)W/RADHA BILAT IMPRESSION: Stable bilateral screening mammogram. Yearly follow-up mammogram recommended. (A) ASSESSMENT CATEGORY: BIRADS Category 1: Negative. A letter regarding these results will be sent to the patient by the facility within 30 days. Approximately 10% of breast cancers are not detected by mammography. A normal mammogram should not delay biopsy of a clinically suspicious abnormality. [id number] Electronically Signed: Burce Hudson MD at 13:23 EST ,
== END | disposition home or self-care (01) ==
LOC: OPBI 12:39
PROVIDERS: PCP Nurse Practitioner Family; Referring Provider Family Medicine; Visit Provider Family Medicine
DX: Z12.31 Encounter for screening mammogram for malignant neoplasm of breast (principal)
CPT/HCPCS: 77063; 77067